=== PATIENT | male | born 1975 | race African-American/Black ===

== ENCOUNTER 2024-09-08 01:28 | Day surgery (SDC) | payer OTHER, SELFPAY ==
[2024-08-28 14:31] VITALS: BMI 52.1
--- OUTSIDE RECORDS SUMMARY | 2024-09-08 01:32 | XMS_ITS | Referral Summary ---
Author Organization [address] Address [address] [place] [phone] Care Team Providers Care Sales Trainee Name Role Phone Sylvia Valentin MD Unavailable [phone] Snehal Patricia MD Primary Care Provider [phone] Allergies Active Allergy Reactions Criticality Noted Date Comments Penicillins Unknown Medications albuterol HFA (PROVENTIL HFA,VENTOLIN HFA,PROAIR HFA) 90 mcg/actuation inhaler Inhale 2 puffs every 6 (six) hours as needed 01/04/2023 Active apixaban (ELIQUIS ORAL) Take by mouth Active amiodarone (PACERONE) 400 mg tablet Take 1 tablet (400 mg total) by mouth 2 (two) times a day for 12 doses 12 tablet 03/19/2023 Active magnesium oxide (MAG-OX) 400 mg (241.3 mg elemental magnesium) tabletIndicatio ns:hypomagnesem ia Take 2 tablets (800 mg total) by mouth 2 (two) times a day for 728 doses 120 tablet 11 03/19/2023 Active Active Problems Problem Noted Date Diagnosed Date Encounter for screening colonoscopy 05/12/2024 V tach 02/12/2023 Acute bilateral low back pain 03/26/2017 Assessment & Plan (03/26/2017 2:15 PM PRENATAL TEACHER): Acute on Chronic Back Pain (back Injury in 2010) BMI 45.0-49.9, adult 03/26/2017 Obesity, morbid, BMI 40.0-49.9 03/26/2017 Assessment & Plan (03/26/2017 2:17 PM PRENATAL TEACHER): Diet= low-carb Limit white bread, rice, pasta, potatoes, juice, energy drinks, coffee creamers with sugar, sugar sodas, candy, cake, cookies, ice cream. Be more careful with starchy vegetables like corn, carrots, and fruits. Stay away from processed foods, fast foods, fried foods. The cornerstone of this diet is lean grilled meats, green salads or cooked greens, fat-free milk, cottage cheese, nuts like jizbbij-fzcikao-khgcmlf, protein bars with 10-15 g of protein and 20-30 g of carbohydrate. Choose whole grain breads and pastas, brown rice, sweet potatoes, read onions--these whole grains absorb more slowly thus blood sugar does not surge so high so quickly. Avoid drinking juice, eat a piece of fruit instead. Social History Tobacco Use Types Packs/Day Years Used Date Smoking Tobacco: Never Passive Smoke Exposure: Past Smokeless Tobacco: Never Tobacco Cessation:Counseling Given: Not Answered Alcohol Use Standard Drinks/Week Comments No 0 (1 standard drink = 0.6 oz pur e alcohol) AUDIT-C Answer Date Recorded Q1: How often do you have a drink containing alcohol? Never 03/18/2023 Q2: How many drinks containi ng alcohol do you have on a typical day when you are drinking? Patient does not drink Q3: How often do you have si x or more drinks on one occasion? Never 03/18/2023 Personal Safety Answer Date Recorded Have you ever been in or are you currently in a harmful physical or emotional relationship or is someone making you feel afraid or unsafe? Denies 03/18/2023 Sex and Gender Information Value Date Recorded Sex Assigned at Not on file Legal Sex Male 6:14 PM PRENATAL TEACHER Gender Identity Not on file Sexual Orientation Not on file Last Filed Vital Signs Vital Sign Reading Time Taken Comments Blood Pressure 135/84 03/19/2023 8:20 AM PRENATAL TEACHER Pulse 75 03/19/2023 9:00 AM PRENATAL TEACHER Temperature 36.4 C (97.6 F) 03/19/2023 8:20 AM PRENATAL TEACHER Respiratory Rate 18 03/19/2023 8:20 AM PRENATAL TEACHER Oxygen Saturation 100% 03/19/2023 8:20 AM PRENATAL TEACHER Inhaled Oxygen Concentration - - Weight 153.3 kg (338 lb) 03/18/2023 7:01 AM PRENATAL TEACHER Height 175.3 cm (5' 9) 03/18/2023 7:01 AM PRENATAL TEACHER Body Mass Index 49.91 03/18/2023 7:01 AM PRENATAL TEACHER Plan of Treatment Upcoming Encounters Date Type Department Care Team (Late st Contact Info) Description 12/14/2024 9:30 AM CDT Hospital Encounter [address] [address] Ian Recinos, DO [address] [facility] [address] [place] [address] 12/14/2024 9:30 AM CDT - 12/14/2024 10:00 AM CDT Surgery [address] [address] Ian Recinos, DO [address] [facility] [place] [address] COLONOSCOPY Scheduled Procedures Name Priority Associated Diagnoses Date/Ti me COLONOSCOPY Encounter for screening colonoscopy 12/14/2024 9:30 AM CDT Insurance [facility] CHOICE PLUS [facility] HMO/PPO Address: [facility] [address] [place] [address] [facility] CHOICE PLUS [facility] HMO/PPO Address: [address] [address] [place] [id number] [facility] CHOICE PLUS [facility] HMO/PPO Address: [address] [address] [place] [address] Care Teams Sales Trainee Relationship Specialty Start Date End Date Snehal Patricia MD [facility] [address] PCP - General Internal Medicine 03/19/23 Sylvia Valentin MD [address] [place] [address] Consulting Physician Cardiology 03/19/23
--- OUTSIDE RECORDS SUMMARY | 2024-09-08 01:32 | XMS_ITS | Clinical Summary ---
Author Organization [address] Address [address] [place] [id number] Care Team Providers Care Systems Administrator Name Role Phone Sylvia Valentin MD Unavailable [phone] Snehal Patricia MD Primary Care Provider [phone] Allergies Active Allergy Reactions Criticality Noted Date [...] 03/26/2017 Assessment & Plan (03/26/2017 2:15 PM MACHINE OPERATOR HOP PICKER): Acute on Chronic Back Pain (back Injury in 2010) BMI 45.0-49.9, adult 03/26/2017 Obesity, morbid, BMI 40.0-49.9 03/26/2017 Assessment & Plan (03/26/2017 2:17 PM MACHINE OPERATOR HOP PICKER): Diet= low-carb Limit white bread, rice, pasta, potatoes, juice, energy drinks, coffee creamers with sugar, sugar sodas, candy, cake, cookies, ice cream. Be more careful with starchy vegetables like corn, carrots, and fruits. Stay away from processed foods, fast foods, fried foods. The cornerstone of this diet is lean grilled meats, green salads or cooked greens, fat-free milk, cottage cheese, nuts like pmeeold-ysbvdip-zywzlqi, protein bars with 10-15 g of protein and 20-30 g of carbohydrate. Choose whole grain breads and pastas, brown rice, sweet potatoes, read onions--these whole grains absorb more slowly thus blood sugar does not surge so high so quickly. Avoid drinking juice, eat a piece of fruit instead. Surgical History Surgery Date Site/Laterality Comments HERNIA REPAIR Medical History Medical History Date Comments Back injury 2010 V tach (HCC) Sleep apnea Atrial fibrillation (HCC) Asthma Family History Medical History Relation Name Comments Diabetes Mother Diabetes Mother's Brother Relation Name Status Comments Mother Mother's Brother Social History Tobacco Use Types Packs/Day Years [...] on file Legal Sex Male 6:14 PM MACHINE OPERATOR HOP PICKER Gender Identity Not on file Sexual Orientation Not on file Obstetrics History Last Filed Vital Signs Vital Sign Reading Time Taken Comments Blood Pressure 135/84 03/19/2023 8:20 AM MACHINE OPERATOR HOP PICKER Pulse 75 03/19/2023 9:00 AM MACHINE OPERATOR HOP PICKER Temperature 36.4 C (97.6 F) 03/19/2023 8:20 AM MACHINE OPERATOR HOP PICKER Respiratory Rate 18 03/19/2023 8:20 AM MACHINE OPERATOR HOP PICKER Oxygen Saturation 100% 03/19/2023 8:20 AM MACHINE OPERATOR HOP PICKER Inhaled Oxygen Concentration - - Weight 153.3 kg (338 lb) 03/18/2023 7:01 AM MACHINE OPERATOR HOP PICKER Height 175.3 cm (5' 9) 03/18/2023 7:01 AM MACHINE OPERATOR HOP PICKER Body Mass Index 49.91 03/18/2023 7:01 AM MACHINE OPERATOR HOP PICKER Plan of Treatment Upcoming Encounters Date Type Department Care Team (Late st Contact Info) Description 12/14/2024 9:30 AM CDT Hospital Encounter [address] [address] Ian Recinos DO [address] [facility] [place] [address] 12/14/2024 9:30 AM CDT - 12/14/2024 10:00 AM CDT Surgery [address] [address] Ian Recinos DO [address] [facility] [address] [place] [address] COLONOSCOPY Scheduled Procedures Name Priority Associated Diagnoses Date/Ti me COLONOSCOPY Encounter for screening colonoscopy 12/14/2024 9:30 AM CDT Health Maintenance Due Date Last Done Comments Colon Cancer Screening-Colonoscopy 1974 Depression Screening 1974 Hepatitis C Screening 1974 Prostate Cancer Screening-PSA 1974 DTaP/Tdap/Td Vaccine (1 - Tdap) 1985 Hepatitis B Screening 1992 Regular Well Visit/Exam 18-64 1992 Pneumococcal vaccine <65 (1 of 2 - PCV) 1993 Zoster Vaccine (1 of 2) 2024 Influenza Vaccine (Season Ended) 2024 Insurance [facility] CHO[facility] PLUS [facility] H[facility]/PPO Address: [address] [place] [address] [facility] CHOICE PLUS [facility] HMO/PPO Address: [address] [place] [address] [facility] CHOICE PLUS [facility] HMO/PPO Address: [address] [place] [address] Care Teams Systems Administrator Relationship Specialty Start Date End Date Snehal Patricia MD [address] [address] PCP - General Internal Medicine 03/19/23 Sylvia Valentin MD [address] [place] [address] Consulting Physician Cardiology 03/19/23
--- OUTSIDE RECORDS SUMMARY | 2024-09-08 01:32 | XMS_ITS | Clinical Summary ---
Author Organization [facility] [facility] Address [address] [place] [address] Care Team Providers Care Environmental Field Technician Name Role Phone Unavailable Primary Care Provider Unavailabl e Source Comments [facility],non-owned Affiliates and Associated Physician Practices is amultiple site organization consisting of ambulatory clinics and hospital sitesin [place], [place], [place] and [place]. This disclosure is being madepursuant to the Care Everywhere program and may not contain all information available regarding this patient. Last updated 17.[facility] Allergies Active Allergy Reactions Criticality Noted Date Comments Penicillins Other 07/21/2024 Childhood, unsure of RXN Medications * Be aware that medications may not be up to date on this document. Alwaysverify current medications with the patient. albuterol HFA (Proventil; Ventolin; Proair) 108 (90 Base) MCG/ACT inhaler Inhale 2 (two) puffs by mouth as needed Active acetaminophen (Tylenol) 500 MG capsule Take 1 (one) capsule by mouth every 4 hours as needed for Fever or Pain 30 capsule 5 Active Additional Information Patient not taking.Reported on 08/25/2024 ibuprofen (Motrin) 400 MG tablet Take 1 (one) tablet by mouth every 6 hours as needed for Pain 30 tablet 5 Active Additional Information Patient not taking.Reported on 08/25/2024 oxyCODONE, immediate release, (Roxicodone) 5 MG tabletIndicati ons:Scrotal mass Take 1 (one) tablet by mouth every 6 hours as needed for Pain 5 tablet 5 08/26/19 25 Discontin ued(Tx Complete) Encounters Date Type Department Care Team Description 08/25/2024 10:00 AM CDT Office Visit [facility] - Urology [address] [place] [address] Paty Manzanares, TRAFFIC RATE ANALYST-HYPERION ESSBASE DEVELOPER Postop check (Primary Dx) 08/25/2024 Travel 08/02/2024 1:31 PM CDT Anesthesia Event [facility] [address] [place] [address] Zafar Olson DO Singh, Jaganjot, DO 08/02/2024 12:05 PM CDT - 08/02/2024 2:12 PM CDT Surgery [facility] [address] [place] [address] Liberty Arredondo DO Right hydrocelectomy 08/02/2024 8:57 AM CDT - 08/02/2024 4:08 PM CDT Hospital Encounter [facility] [address] [place] [address] Liberty Arredondo DO Surgery General Discharge Disposition: Home or Self Care 08/02/2024 Travel 08/01/2024 Telephone [facility] - Urology [address] [facility], [place] [address] Liberty Arredondo DO Surgery Scheduling (Pt returned call confirmed 1030AM arrival for 1230PM procedure time on 08/02. Kamilah Ren 08/01/2024 10:35 AM ) 07/21/2024 3:12 PM CDT - 07/21/2024 11:59 PM CDT Hospital Encounter [facility] [address] [place] [address] Discharge Disposition: Home or Self Care 07/21/2024 1:30 PM CDT - 07/21/2024 3:11 PM CDT Hospital Encounter [facility] [address] [place] [address] Liberty Arredondo DO Discharge Disposition: Home or Self Care 07/21/2024 Travel 06/09/2024 9:30 AM BARGE MASTER Office Visit [facility] - Urology [address] [place] [address] Liberty Arredondo DO Other hydrocele (Primary Dx); Scrotal mass; Nocturia 06/09/2024 Travel from Last 3 Months Social History Tobacco Use Types Packs/Day Years Used Date Smoking Tobacco: Never Passive Smoke Exposure: Never Smokeless Tobacco: Never Tobacco Cessation:Counseling Given: No Alcohol Use Standard Drinks/Week Comments Never 0 (1 standard drink = 0.6 oz pur e alcohol) AUDIT-C Answer Date Recorded Q1: How often do you have a drink containing alcohol? Never 08/02/2024 Q2: How many drinks containi ng alcohol do you have on a typical day when you are drinking? Patient does not drink Q3: How often do you have si x or more drinks on one occasion? Never 08/02/2024 Sex and Gender Information Value Date Recorded Sex Assigned at Not on file Legal Sex Male 1:44 PM CDT Gender Identity Not on file Sexual Orientation Not on file Last Filed Vital Signs Vital Sign Reading Time Taken Comments Blood Pressure 128/79 08/25/2024 10:39 AM CDT Pulse 75 08/25/2024 10:39 AM CDT Temperature 36.8 C (98.2 F) 08/25/2024 10:39 AM CDT Respiratory Rate 18 08/25/2024 10:39 AM CDT Oxygen Saturation 95% 08/25/2024 10:39 AM CDT Inhaled Oxygen Concentration - - Weight 160.1 kg (353 lb) 08/25/2024 10:39 AM CDT Height 175.3 cm (5' 9) 08/25/2024 10:39 AM CDT Body Mass Index 52.13 08/25/2024 10:39 AM CDT Plan of Treatment Health Maintenance Due Date Last Done Comments COLOGUARD (AGES 45-75) - COL ON CA SCREENING 1974 COLON MONITORING 1974 COLONOSCOPY - COLON CA SCREENING 1974 CT COLONOGRAPHY - COLON CA SCREENING 1974 Colorectal Cancer Screening 1974 FIT - COLON CA SCREENING 1974 FLEX SIG - COLON CA SCREENING 1974 LIPID TESTING 1974 HIV SCREENING 1989 HEPATITIS C SCREENING 08/03/1992 DTAP/TDAP/TD VACCINES (1 - Tdap) 1993 HEPATITIS B VACCINE (1 of 3 - 19+ 3-dose series) 1993 COVID-19 VACCINE (1 - 2023-2 5 season) 2023 DEPRESSION SCREENING 04/12/2024 MEDICARE AWV CALENDAR YEAR 2024 PNEUMOCOCCAL VACCINE 50+ (1 of 1 - PCV) 2024 ZOSTER VACCINE (1 of 2) 2024 INFLUENZA VACCINE (Season Ended) 2024 01/05/20 SCREENING FOR DIABETES 07/22/2027 07/21/2024 HIB VACCINE Aged Out No longer eligi ble based on patient's age to complete this topic HPV VACCINE Aged Out No longer eligi ble based on patient's age to complete this topic MENINGOCOCCAL (Group B) VACC INE SHARED DECISION-MAKING Aged Out No longer eligibl e based on patient's age to complete this topic MENINGOCOCCAL GROUPS A/C/Y/W VACCINE Aged Out No longer eligible b ased on patient's age to complete this topic Procedures Procedure Name Priority Date/Time Associated Diagnosis Comments ENDOTRACHEAL TUBE NOTE Routine 08/02/2024 1:53 PM CDT OK REMOVAL OF SCROTAL FOR.BODY 08/02/2024 12:56 PM CDT Other hydrocele Scrotal mass Case Notes Reviewed 08/01 OK REMOVAL OF HYDROCELE,TUNICA,UNI LAT 08/02/2024 12:56 PM CDT Other hydrocele Scrotal mass Case Notes Reviewed 08/01 TYPE + SCREEN PANEL STAT 08/02/2024 1 0:44 AM CDT Scrotal mass EKG 12-LEAD STAT 08/02/2024 10:29 AM CDT Scrotal mass TYPE + SCREEN PANEL Routine 07/21/2024 3 :21 PM CDT Scrotal mass BASIC METABOLIC PANEL (CALCIUM TOTAL) Routine 07/21/2024 3:21 PM CDT Scrotal mass CBC W/O DIFFERENTIAL Routine 07/21/2024 3:21 PM CDT Scrotal mass from Last 3 Months Results * ETT LINE PERFORMABLE (08/02/2024 1:53 PM CDT) Narrative Melvina Carlos APRN-CRNA - 08/02/2024 1:53 PM CDT Melvina Carlos APRN-CRNA 08/02/2024 1:55 PM Endotracheal Tube Placement: Patient Location: OR. Intubation Event Date/Time: 08/02/2024 1:43 PM Procedure: intubation ([id number]) Procedure Section: Sedation: under general anesthesia. Indications for Airway Management: anesthesia Procedure pretreatments used? No Induction: standard IV Patient Position: sniffing Mask Ventilation: difficult and required 2 people (2 handed). Blade Type: Levi Blade Size: 4 Intubation Adjuncts: stylet Tube: endotracheal tube Placement: oral Tube type: cuff - inflated Tube Size (MM): 8 Depth of Insertion (CM): 22 Measured From: gums Cuff volume (mL): 8 Cuff Inflated With: air Number of Attempts: 2. Ventilation between attempts: Yes. Placement Verified By: bilateral breath sounds, direct visualization, chest auscultation and CO2 monitor CXR Findings: ETT in proper place. Tube secured with: adhesive tape. Dentition unchanged? Yes Difficult Airway? No. Procedure Start Time: 08/02/2024 1:43 PM. Staff Section Anesthesia Provider: Melvina Carlos APRN-CRNA, Performed the procedure Provider #1: Zafar Olson DO. Additional Comments: Pt has good mouth opening and thyromental distance >3 FB. Difficult mask ventilation requiring 2 providers and red OPA. Grade 2b view using cricoid pressure and only base of arytenoids visible with mac 4 blade. . Zafar Olson DO GENERAL ANESTHESIA ORDERABLES F inal Result * TYPE + SCREEN PANEL (08/02/2024 10:44 AM CDT) Only the most recent of2 resultswithin the time period is included. Antibody Screen NEG 12:13 PM CDT [facility] ABO Rh O POS 08/02/2024 12:13 PM CDT [facility] Blood Bank BLOOD SPECIMEN / Unknown Venipuncture / Unknown 08/02/2024 10:44 AM CDT 08/02/2024 11:13 AM CDT Tra Fried MD LAB - BLOOD BANK ORDERABLES Fin al Result Performing Organization Address City/[facility]/ZIP Co de Phone Number [facility] [address] [place] [address], [facility] [phone] * EKG 12-LEAD (08/02/2024 10:29 AM CDT) Ventricular Rate 64 BPM [facility] Atrial Rate 64 BPM [facility] P-R Interval 142 ms [facility] QRS Duration ms 86 ms [facility] Q-T Interval ms 390 ms [facility] QTC Calculation (Bezet) 402 ms [facility] Calculated P [place] 24 degrees [facility] Calculated R [place] 25 degrees [facility] Calculated T [place] 72 degrees [facility] Interpretation EKG NORMAL SINUS RHYTHM NORMAL ECG NO PREVIOUS ECGS AVAILABLE Confirmed by YOUSIF VALDEZ, YUSEF ([id number]) on 08/04/2024 4:23:55 PM [facility] 08/02/2024 10:2 9 AM CDT 08/04/2024 4:23 PM CDT Tra Fried MD ECG ORDERABLES Edited Result - Final Performing Organization Address [facility] Co de Phone Number [facility] * CBC W/O DIFFERENTIAL (07/21/2024 3:21 PM CDT) Pathologist [facility] WBC 6.7 4.0 - 10.7 x10E9/L 07/21/2024 4:02 PM CDT [facility] RBC Count 4.76 4.30 - 5.80 x10E12/L 07/21/2024 4:02 PM CDT [facility] Hemoglobin 13.6 13.3 - 17.5 g/dL 07/21/2024 4:02 PM CDT [facility] Hematocrit 42.9 38.7 - 51.1 % 07/21/2024 4:02 PM [facility] MCV 90.1 80.0 - 98.0 fL 07/21/2024 4:02 PM [facility] MCH 28.6 26.7 - 33.6 pg 07/21/2024 4:02 PM [facility] MCHC 31.7 31.7 - 36.3 g/dL 07/21/2024 4:02 PM [facility] RDW-CV 12.2 11.3 - 14.8 % 07/21/2024 4:02 PM [facility] Platelet Count 295 150 - 420 x10E9/L 07/21/2024 4:02 PM [facility] MPV 9.5 7.8 - 11.4 fL 07/21/2024 4:02 PM [facility] Blood BLOOD SPECIMEN / Unknown Lab Venipuncture / Unknown 07/21/2024 3:21 PM CDT 07/21/2024 3:56 PM CDT us Tra Fried MD LAB - HEMATOLOGY ORDERABLES Fin al Result [facility] [address] [place] [address], [facility] [phone] * BASIC METABOLIC PANEL (CALCIUM TOTAL) (07/21/2024 3:21 PM CDT) BUN 16 7 - 26 mg/dL 07/21/2024 4:21 PM [facility] Creatinine 1.00 0.71 - 1.16 mg/dL 07/21/2024 4:21 PM [facility] Sodium 141 136 - 145 mmol/L 07/21/2024 4:21 PM [facility] Potassium 4.4 3.5 - 4.5 mmol/L 07/21/2024 4:21 PM [facility] Chloride 107 98 - 107 mmol/L 07/21/2024 4:21 PM [facility] CO2 28 22 - 29 mmol/L 07/21/2024 4:21 PM [facility] Glucose 96 70 - 99 mg/dL 07/21/2024 4:21 PM [facility] Calcium 8.8 8.4 - 10.2 mg/dL 07/21/2024 4:21 PM [facility] Anion Gap 6 6 - 16 07/21/2024 4:21 PM [facility] BUN/Creatinine Ratio 16 7 - 23 07/21/2024 4:21 PM [facility] Osmolality Calculated 293 275 - 295 mOsm/kg 07/21/2024 4:21 PM [facility] eGFR by CKD-EPI >90 >=90 mL/min/1.7 3 m2 07/21/2024 4:21 PM [facility] Blood BLOOD SPECIMEN / Unknown Lab Venipuncture / Unknown 07/21/2024 3:21 PM CDT 07/21/2024 3:56 PM T us Tra Fried MD LAB - CHEMISTRY ORDERABLES Sherin garcia Result [facility] [address] [place] [address], [facility] [phone] from Last 3 Months Insurance [employer] MANAGED MEDICARE ADV [facility] MANAGED MEDICARE ADV
--- OUTSIDE RECORDS SUMMARY | 2024-09-08 01:32 | XMS_ITS | Clinical Summary ---
Author Organization [facility] Address [address] [place] [address] Phone Care Team Providers Care Washtub Worker Helper Name Role Phone Unavailable Primary Care Provider Unavailabl e Allergies Active Allergy Reactions Criticality Noted Date Comments Penicillins Other (see Comments) 11/08/2018 Medications fluticasone-vilan terol (BREO ELLIPTA) 200-25 MCG/INH AEROSOL POWDER, BREATH ACTIVATEDIndicati ons:Mild intermittent asthma, unspecified whether complicated take 1 Puff by inhalation daily. 1 Each 2 9 Active albuterol 108 (90 Base) MCG/ACT Aerosol SolutionIndicatio ns:Mild intermittent asthma, unspecified whether complicated take 2 Puffs by inhalation every 6 hours as needed for Wheezing or Cough. 8.5 g 9 Active Active Problems Problem Noted Date Diagnosed Date Vitamin D deficiency 11/09/2018 Mild intermittent asthma 11/08/2018 Family History Medical History Relation Name Comments Diabetes Brother 1 Hypertension Brother 1 No Known Problems Brother 2 No Known Problems Brother 3 Migraines Brother 4 Migraines Father Stroke Father Diabetes Mother Migraines Sister Relation Name Status Comments Brother 1 Alive Brother 2 Alive Brother 3 Alive Brother 4 Alive Father Mother Alive Sister Alive Social History Tobacco Use Types Packs/Day Years Used Date Smoking Tobacco: Never Smokeless Tobacco: Never Alcohol Use Standard Drinks/Week Comments Not Currently 0 (1 standard drink = 0.6 oz pur e alcohol) PHQ-2 Answer Date Recorded PHQ-2 Score 0 12/13/2018 Sexually Active Control Partners Comments Yes Condom Female Sex and Gender Information Value Date Recorded Sex Assigned at Not on file Legal Sex Male 12:30 AM CDT Gender Identity Not on file Sexual Orientation Not on file 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 Not on file Not on file Last Filed Vital Signs Vital Sign Reading Time Taken Comments Blood Pressure 122/70 11/28/2018 2:12 PM CDT Pulse 77 11/28/2018 2:12 PM CDT Temperature 37.2 C (98.9 F) 11/28/2018 2:12 PM CDT Respiratory Rate 20 11/28/2018 2:12 PM CDT Oxygen Saturation 96% 11/28/2018 2:12 PM CDT Inhaled Oxygen Concentration - - Weight 155 kg (341 lb 12.8 oz) 11/28/2018 2:12 P M CDT Height 175.3 cm (5' 9) 11/28/2018 2:12 PM CDT Body Mass Index 50.48 11/28/2018 2:12 PM CDT Plan of Treatment Health Maintenance Due Date Last Done Comments Hepatitis C Virus (HCV) Screening 1974 TdaP Immunization 1974 Hepatitis B Immunization (1 of 3 - 19+ 3-dose series) 1993 Pneumococcal Immunization Co mbined (1 of 2 - PCV) 1993 Colonoscopy 08/09/2019 Colorectal Cancer Screening 08/09/2019 Influenza Immunization (#1) 2023 SARS-COV-2 Immunization ( - 2023- season) 2023 Cologuard 2024 Immunochemical Fecal Occult Blood 2024 Respiratory Syncytial Virus (RSV) Immunization (Adult) (1 - 1-dose 75+ series) 2049 Meningococcal Immunization (ACWY) Aged Out No longer eligible based on patient's age to complete this topic Rotavirus Immunization Aged Out No lo nger eligible based on patient's age to complete this topic
--- OUTSIDE RECORDS SUMMARY | 2024-09-08 01:32 | XMS_ITS | Continuity of Care Document ---
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 Name Role Phone Unavailable Unavailable Unavailable Procedures Procedure Date OFFICE OUTPT NEW 20 MINUTES Advance Directives Directive Yes / No Effective Date File Name No Information Encounters Encounter Description Practice Location Reason(s) For Visit Diagnoses Date Provider Providers Copied on Encounter OFFICE OUTPT NEW 20 MINUTES [facility] , [address], [place], [place], [id number], tel:[phone] [id number] [facility] No Information Family History Family Member Type Diagnosis Age At Onset No Information Payers Payer name Insurance type Covered alliance party ID Authoriza tion(s) No Information Social History Type Description Quantity Date Captured Comments Sex Male Smoking Status No Information Vital Signs Date / Time: Height Weight BMI Pulse Rate Blood Pressure Temperature Respiratory Rate Body Surface Area Head Circumference Head Circ. Percentile Wt./Ruperto. Percentile BMI percentile Pulse Ox Inhaled Ox 9:38 AM 69.00 in 290.00 lbs 0.00 kg/m eter (2) 0 /min 110/80 mm[Hg] 98.50 F 0 /min 0.00 cm 0 % Chief Complaint And Reason For Visit No Information Reason For Referral Reason For Referral No Information History Of Present Illness Encounter Date Complaint History Of Prese nt Illness No Information Functional Status Date Functional Assessmen t No Information Instructions Date Instruction Additional Infor mation No Information Assessments Type Assessment Date No Information Patient Care Teams Name Effective Dates (start - stop) Status Members No Information
--- OUTSIDE RECORDS SUMMARY | 2024-09-08 01:32 | XMS_ITS | Data Portability ---
Author Organization [place] [facility], Main Office Address [address] [place] [address] Care Team Providers Care Lead Ramp Agent Name Role Phone GRIS LONDON Primary Care Provider GRIS LONDON Referring Provider [phone] Assessment Encounter Date Assessment Date Assessment LastModified by Organization Details LastModified Time 12/02/2022 12/02/2022 Assessment: FLORENCE PLMD Hypoventilation Plan: The following were reviewed and explained to the patient: primary care/referral note General information on sleep disordered breathing, evaluation of sleep disordered breathing, treatment with PAP therapy, and living with PAP therapy were covered. Chapter 1 of educational DVD was shown. PSG is medically necessary to determine the degree of and management of sleep apnea. We discussed with the patient the impact of weight on: Sleep disordered breathing Hypertension We discussed with the patient the benefit of PAP therapy on: Sleep disordered breathing Hypertension Educated the patient on sleep hygiene measures. Relaxing rituals to rest easy, understanding foods with positive and negative impact on sleep, creating a peaceful sleep environment, timing of exercise, using herbal sleep aids, and practicing sleep-friendly meditation were covered. To determine how much sleep is needed, the patient will assess where he falls on the spectrum, examine what lifestyle factors such as work schedules and stress are affecting the quality and quantity of sleep. In general, adults need 7-9 hours of sleep. Educated the patient regarding foods that promote sleep. These include but are not limited to cherries, bananas, toast, oatmeal, and warm milk. Educated the patient regarding foods and drinks to avoid before bedtime. These include but are not limited to aged cheese, chocolate, spicy foods, tomato-based sauces, soy, ginseng tea and processed meat. Advocated influenza vaccination annually and pneumonia vaccination in 2039. Advocated weight loss through diet and exercise. Patient's ideal body weight according to height and gender is up to 175 lbs. Encouraged patient to adjust caloric intake to maintain/achieve ideal body weight, emphasizing on fruits, vegetables, whole grains, and fat-free or low-fat products. These include lean meats, poultry, fish, beans, eggs, and nuts and foods that are low in saturated fats, trans-fats, cholesterol, salt (sodium), and glycemic index. Stressed the importance of regular exercise up to the patient's capacity limits. In this case, we recommend 20 min daily walking, 2 days a week of resistance training. Patient to monitor BP daily and bring records to PCP for further management. 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 PSG is medically necessary to determine the management of sleep apnea. We discussed with the patient the impact of weight on: Sleep disordered breathing Hypertension We discussed with the patient the benefit of PAP therapy on: Sleep disordered breathing Hypertension Educated the patient on sleep hygiene measures. Relaxing rituals to rest easy, understanding foods with positive and negative impact on sleep, creating a peaceful sleep environment, timing of exercise, using herbal sleep aids, and practicing sleep-friendly meditation were covered. To determine how much sleep is needed, the patient will assess where he falls on the spectrum, examine what lifestyle factors such as work schedules and stress are affecting the quality and quantity of sleep. In general, adults need 7-9 hours of sleep. Educated the patient regarding foods that promote sleep. These include but are not limited to cherries, bananas, toast, oatmeal, and warm milk. Educated the patient regarding foods and drinks to avoid before bedtime. These include but are not limited to aged cheese, chocolate, spicy foods, tomato-based sauces, soy, ginseng tea and processed meat. Advocated influenza vaccination annually and pneumonia vaccination in 2039. Advocated weight loss through diet and exercise. Patient's ideal body weight according to height and gender is up to 175 lbs. Encouraged patient to adjust caloric intake to maintain/achieve ideal body weight, emphasizing on fruits, vegetables, whole grains, and fat-free or low-fat products. These include lean meats, poultry, fish, beans, eggs, and nuts and foods that are low in saturated fats, trans-fats, cholesterol, salt (sodium), and glycemic index. Stressed the importance of regular exercise up to the patient's capacity limits. In this case, we recommend 20 min daily walking, 2 days a week of resistance training. Patient to monitor BP daily and bring records to PCP for further management. Follow-up: 1 week after titration sleep study Not available 01/11/2023 10:18:28 Plan of Treatment Reminders Order Date Submit Date Provider Last Modified By Organization Details Last Modified Time Details Appointments None recorded. Lab None recorded. Referral None recorded. Procedures None recorded. Surgeries None recorded. Imaging polysomnog orquidea, titration study - approved [id number] 04/19/2023 07/19/20232022 023 [email or web address] [facility] [place], [address] [place], [address], 4 11:38:37 polysomnog orquidea, diagnostic , 6 yrs or older [email or web address], [address] [place], [address], 13:37:17 Medication Orders None recorded. Patient TargetsNo targets recorded. Patient InstructionsNo instructions recorded. Reason for Referral None Reported. Results Created Date Observation Date Name Description Value Unit Range Abnormal Flag Note LastModifiedBy Organization Detail LastModifiedTime 01/08/2001/04/2023 home sleep study No observ ation record ed. BARCODE Not Available 2022 14:06:29 05/04/1903/29/2024 XR, elbow No observ ation record ed. [email or web address] Not Available 04/13 14:36:35 05/04/1903/29/2024 XR, shoul eduardo No observ ation record ed. [email or web address] Not Available 04/13 14:36:35 Result Notes None recorded. 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 Procedures Surgical History Date Name Laterality Status Provider Name and Address Organization Details Recorded Time inguinal herniorrhaphy completed Bambi Das MA [employer] [facility] [employer] 12/02/2022 16:19:33 inguinal herniorrhaphy completed Bambi Das MA [facility] [employer] [facility] 12/02/2022 16:20:12 Imaging Results None recorded. Procedure Notes None recorded. Medical Equipment None Reported. Allergies Allergen ID Allergen Name Allergen Category Reaction Reaction Severity Criticality Documentation Date Start Date Code Code System Note Provider Name and Address Organization Details Recorded Time 83489 Product containin g penicilli n (product) medicatio n Not available Not available Not available 06/10/2022 73961 8001 SNOMED Not Available [facility] 17:31:13 Medications Name Sig Start Date Stop Date Status Note LastModified by Organization Details LastModified Time ibuprofen 800 mg tablet TAKE 1 TABLET BY MOUTH THREE TIMES DAILY WITH MEALS FOR 14 DAYS FOR PAIN active Not Available Not Available No t Available hydrocodone 5 mg-acetamin ophen 325 mg tablet 12/02 completed Not Available Not Available Not Available clindamycin HCl 150 mg capsule TAKE 1 CAPSULE BY MOUTH EVERY 6 HOURS UNTIL ALL TAKEN 12/02 completed Not Available Not Available Not Available metronidazo le 500 mg tablet 12/02 completed Not Available Not Available Not Available acetaminoph en 300 mg-codeine 30 mg tablet TAKE 1 TABLET BY MOUTH EVERY 6 HOURS NEEDED FOR PAIN 12/02 completed Not Available Not Available Not Available ciprofloxac in 500 mg tablet active Not Available Not Available Not Available hydrocodone 10 mg-acetamin ophen 325 mg tablet 12/02 completed Not Available Not Available Not Available oxycodone-a cetaminophe n 5 mg-325 mg tablet 12/02 completed Not Available Not Available Not Available promethazin e 25 mg tablet 12/02 completed Not Available Not Available Not Available albuterol sulfate HFA 90 mcg/actuati on aerosol inhaler active Not Available Not Available Not Available cyclobenzap rine 5 mg tablet TAKE 1 TABLET BY MOUTH THREE TIMES DAILY FOR 14 DAYS DIRECTED FOR MUSCLE STRAIN active Not Available Not Available No t Available DILT-XR 180 mg capsule, extended release active Not Available Not Available Not Available Vitals Date Recorded Heart rate Respiratory rate Provider Krissy jacskon and Address Organization Details Last Updated DateTime 12/02/2022 69 /min 15 /min Nishant Gardner MD [address], [employer], [place], [address], [facility] [employer] [facility] 12/02/2022 16:35:19 Date Recorded Body weight Body mass index (BMI) Body height Body temperature Heart rate Oxygen saturation Oxygen saturation in Arterial blood by Pulse oximetry Systolic blood pressure Diastolic blood pressure Provider Name and Address Organization Details Last Updated DateTime 3 576788. 34 g 47.7 kg/m2 175.26 cm 98.2 [degF] 69 /min 96 % 96 % 122 mm[Hg] 84 mm[Hg] Bambi Das MA [facility] [employer] 16:24:22 Date Recorded Heart rate Respiratory rate Provider Krissy jackson and Address Organization Details Last Updated DateTime 01/11/2023 73 /min 15 /min Nishant Gardner MD [address], [place], [address], [facility] [employer] [facility] 01/11/2023 10:29:51 Date Recorded Body height Body mass index (BMI) Body weight Body temperature Heart rate Oxygen saturation Oxygen saturation in Arterial blood by Pulse oximetry Systolic blood pressure Diastolic blood pressure Provider Name and Address Organization Details Last Updated DateTime 3 175.26 cm 49.3 kg/m2 405550. 85 g 97.6 [degF] 73 /min 97 % 97 % 122 mm[Hg] 76 mm[Hg] Bambi Das MA Lorena [facility]axiola 10:06:04 Social History Question Answer Notes LastModified by Organizat ion Details LastModified Time Tobacco Smoking Status Never Smoker Bambi Das MA null, [facility] 12/02/2022 16:17:31 What Is Your Level Of Caffeine Consumption? Occasional Information not available 12/02/2022 In The 14 Days Before Symptom Onset, Have You Had Close Contact With A Laboratory-confirm ed COVID-19 While That Case Was Ill? No Information n ot available 12/02/2022 In The 14 Days Before Symptom Onset, Have You Had Close Contact With A Person Who Is Under Investigation For COVID-19 While That Person Was Ill? No Information not available 12/02/2022 What Type Of Diet Are You Following? REGULAR Information n ot available 12/02/2022 Do You Have An Electrostatic Air Filter? No Information not available 12/02/2022 Do You Have A Humidifier? No Information not available 12/02/2022 Do You Have Moisture Problems In Your Home? No Information not available 12/02/2022 What Was The Date Of Your Most Recent Tobacco Screening? 01/11/2023 Information not available 01/11/2023 Do You Have Any Pets? No Information not available 12/02/2022 Do You Use Your Seat Belt Or Car Seat Routinely? Yes Information not available 12/02/2022 Do You Have Smoke And Carbon Monoxide Detectors In Your Home? Yes Information not available 12/02/2022 Are You Passively Exposed To Smoke? No Information no t available 12/02/2022 Do You Use Sunscreen Routinely? No Information not available 12/02/2022 Have You Recently Traveled Abroad? No Information not available 12/02/2022 Do You Have Any Dietary Restrictions? No Information not available 12/02/2022 Sex: Unknown Functional Status Question Answer Note LastModified by Organizat ion Details LastModified Time Do you use any illicit or recreational drugs? No Information not available 12/02/2022 What is your level of alcohol consumption? Occasional Information not available 12/02/2022 Are you currently employed? Yes Information not available 12/02/2022 Have you been exposed to chemicals or toxins? 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 Moderate Information not available 12/02/2022 Mental Status None recorded. Family History Relationship Description Onset Age of this Age Resolved Age Notes LastModified by Organization Details LastModified Time Mother Diabetes mellitus [email or web address] Not available 2022 15:35:43 Father Harmful pattern of use of alcohol [email or web address] Not available 2022 15:35:51 Father Migraine [email or web address] Not available 0 12/02/2022 15:35:58 Father Cerebrovascu lar accident [email or web address] Not available 16:41:50 Maternal Uncle Heart disease [email or web address] Not available 2022 15:36:07 Maternal Uncle Cerebrovascu lar accident [email or web address] Not available 16:41:29 Medical History No medical history recorded. Past Encounters Encounter ID Performer Location Encounter Start Date Encounter Closed Date Diagnosis/Indication Diagnosis SNOMED-CT Code Diagnosis ICD10 Code Diagnosis Note [id number] Nishant Gardner MD [facility] [address] 0 12/02/2022 15:56:22 12/02/2022 16:57:45 Sleep apnea 39927668 G47.30 G47.33 G47.36 G47.61 [id number] Nishant Gardner MD [place] [id number] 01/11/2023 09:28:58 01/14/2023 08:43:24 Sleep apnea 00260073 G47.30 G47.33 G47.36 G47.61 Health Concerns Section Related Observation LastModified by Organization Detai ls LastModified Time None Recorded Concern Status LastModified by Organization Details LastModified Time None Recorded Advance Directives Directive None Recorded Payers Encounter Date Sequence Insurance Name Policy Number Policy Sue Covered Member ID Sue Member ID Guarantor Name 12/02/2022 1 [facility] ([facility] [id number] Chan Aquino [id number] Jose Martin Aquino 01/11/2023 1 [facility] ([facility] [id number] Chan Aquino [id number] Jose Martin Aquino Notes Date Note Type Note Provider Name and Address Organization Details Recorded Time 12/02/2022 text/html Primary care/Ref erring provider: Gris London MD At home, the patient sleeps from 12 am to 6:30 am and wakes up with an alarm. Snoring: moderate, since .Snorting: noChoking: noCoughing: noGasping: noGagging: noSighing: noWitnessed apnea: yesTwitching or jerking of leg(s), arm(s), body, head: yesTeeth grinding: noTeeth clenching: noSleeptalking: yesSleepwalking: noSleep crying: noBedwetting: noTongue/lip/gum/cheek biting: noSleeping with open mouth: yesSleep paralysis: noHypnagogic hallucinations: noHypnopompic hallucinations: noVivid dreams: yesDifficulty with sleep onset: yesDifficulty with sleep maintenance: yesSleep interruptions: nocturia x 10Patient wakes up with: fatigue, headaches, cognitive impairmentDaytime cataplexy: noMorning hypersomnolence: yesAfternoon hypersomnolence: yesCaffeine sources in diet: tea 1/3 bottle per day, soda 1 can per month, chocolate 1/3 candy bar per day Associated medical and psychiatric conditions:Congestive heart failure: noCoronary artery disease: noMyocardial infarction: noHypertension: noStroke: noBronchial asthma: noChronic obstructive pulmonary disease: noDepression: noBipolar disorder: noAnxiety: noPanic disorder: noPosttraumatic stress disorder: noAttention deficit and hyperactivity disorder: noObsessive Compulsive disorder: noSchizophrenia: noSchizoaffective disorder: noPersonality disorder: noChronic analgesic use: noChronic sedative/hypnotic use: no EPWORTH SLEEPINESS SCALE (ESS) CHANCE OF DOZING SCORE0 = would never doze1 = slight chance of dozing2 = moderate chance of dozing3 = high chance of dozing SITUATION AND CHANCE OF DOZINGSitting and reading - 1Watching television - 1Sitting inactive in a public place (e.g. a theater or meeting) - 2As a passenger in a car for an hour without a break - 3Lying down to rest in the afternoon when circumstances permit - 3Sitting and talking to someone - 0Sitting quietly after lunch without alcohol - 1In a car, while stopped for a few minutes in the traffic - 0TOTAL SCORE 11Subjectively, patient has a moderate chance of dozing. Nishant Gardner MD [address] [place] [address], [phone], [facility] [employer] 12/02/2022 16:54:11 01/11/2023 text/html Primary care/Ref erring provider: Gris London MD During the [facility] home sleep study on 01/04/23, AHI = 49. At home, the patient sleeps from 12 am to 6:30 am and wakes up with an alarm. Snoring: moderate, since .Snorting: noChoking: noCoughing: noGasping: noGagging: noSighing: noWitnessed apnea: yesTwitching or jerking of leg(s), arm(s), body, head: yesTeeth grinding: noTeeth clenching: noSleeptalking: yesSleepwalking: noSleep crying: noBedwetting: noTongue/lip/gum/cheek biting: noSleeping with open mouth: yesSleep paralysis: noHypnagogic hallucinations: noHypnopompic hallucinations: noVivid dreams: yesDifficulty with sleep onset: yesDifficulty with sleep maintenance: yesSleep interruptions: nocturia x 10Patient wakes up with: fatigue, headaches, cognitive impairmentDaytime cataplexy: noMorning hypersomnolence: yesAfternoon hypersomnolence: yesCaffeine sources in diet: tea 1/3 bottle per day, soda 1 can per month, chocolate 1/3 candy bar per day Associated medical and psychiatric conditions:Congestive heart failure: noCoronary artery disease: noMyocardial infarction: noHypertension: noStroke: noBronchial asthma: noChronic obstructive pulmonary disease: noDepression: noBipolar disorder: noAnxiety: noPanic disorder: noPosttraumatic stress disorder: noAttention deficit and hyperactivity disorder: noObsessive Compulsive disorder: noSchizophrenia: noSchizoaffective disorder: noPersonality disorder: noChronic analgesic use: noChronic sedative/hypnotic use: no EPWORTH SLEEPINESS SCALE (ESS) CHANCE OF DOZING SCORE0 = would never doze1 = slight chance of dozing2 = moderate chance of dozing3 = high chance of dozing SITUATION AND CHANCE OF DOZINGSitting and reading - 1Watching television - 1Sitting inactive in a public place (e.g. a theater or meeting) - 1As a passenger in a car for an hour without a break - 3Lying down to rest in the afternoon when circumstances permit - 3Sitting and talking to someone - 0Sitting quietly after lunch without alcohol - 1In a car, while stopped for a few minutes in the traffic - 0TOTAL SCORE 10Subjectively, patient has a moderate chance of dozing. Nishant Gardner MD [address] [place] [address], [id number], [place] [facility] [employer] [facility] 01/11/2023 10:30:06
--- OUTSIDE RECORDS SUMMARY | 2024-09-08 01:32 | XMS_ITS | Data Portability ---
Author Organization [facility] Address [address] [place] [address] Assessment No assessment recorded. Plan of Treatment Reminders Order Date Submit Date Provider Last Modified By Organization Details Last Modified Time Details Appointments None recor ded. Lab urina lysis compl ete, refle x cultu re 2024 025 MARHSADL Irvin, [address], [address], [place], [address], 5 06:22:23 CT + NG RNA, PCR, unspe cifie d speci men 2024 025 [facility], [address], [address], [place], [address], 5 06:22:22 prote in, total , 24-ho ur urine 2024 025 [facility], 2022 Sus[address]ero, [address], [place], [address], 5 06:22:24 urina lysis macro (dips tick) panel , urine 2023 024 MARSHA Irvin, 2022 [address], [address], [place], [address], 4 13:09:40 CMP, serum or plasm a 2023 024 [facility], [address], [address], [place], [address], 4 13:09:35 CBC w/ auto diff 2023 [facility], 2022 Sus[address]ero, [address], [place], [address], 4 13:09:43 lipid panel , serum 2023 024 [facility], 2022 Sus[address] Lucero, [address], [place], [address], 4 13:09:34 CK (crea tamika kinas e), total , serum 2023 [facility], 2022 Sus[address] Lucero, [address], [place], [address], 4 13:09:37 HbA1c (hemo globi n A1c), blood 2023 024 [facility], [address]22 Sus[address] Lucero, [address], [place], [address], 4 13:09:39 TSH, ultra -sens itive , serum 2023 024 [facility], 20[address] Sus[address], [address], [place], [address], 4 13:09:42 PSA, total , serum or plasm a 2023 024 [facility], [address] Sus[address], [address], [place], [address], 4 13:09:44 potas sium, serum or plasm a 2022 023 [facility], [address] Sus[address]ero, [address], [place], [address], 3 09:18:08 bilir ubin, total + direc t, serum or plasm a 2022 023 [facility], [address]22 Sus[address], [address], [place], [address], 3 09:18:08 CBC w/ auto diff 2022 023 [facility], 2022 Sus[address] Lucero, [address], [place], [address], 3 13:11:56 urina lysis , dipst ick 2022 023 [facility], [address] Sus[address], [address], [place], [address], 3 13:11:56 CMP, serum or plasm a 2022 023 [facility], [address]22 Sus[address] Lucero, [address], [place], [address], 3 13:11:54 lipid panel , serum 2022 023 [facility], [address] Sus[address] Lucero, [address], [place], [address], 3 13:11:53 HIV 1 + 2, meani ngful use set 2022 023 [facility], [address] Sus[address], [address], [place], [address], 3 13:11:58 Hepat itis C IgG Ab, qual, serum 2022 [address] [facility], [address], [address], [place], [address], 3 13:11:52 TSH + free T4, serum 2022 023 [facility], [address] Sus[address] Lucero, [address], [place], [address], 3 13:11:53 HbA1c (hemo globi n A1c), blood 2022 023 CANON [facility], [address], [address], [place], [address], 3 13:11:55 PSA, total , serum or plasm a 2022 023 CANON [facility], [address], [address], [place], [address], 3 13:11:57 vitam in B12, serum 2022 023 [facility], [address], [address], [place], [address], 3 13:11:55 Referral ortho pedic surge on refer ral 2024 025 [facility], [address] [facility], [place], [address], 5 04:11:[address] refer ral 2023 024 MARSHA Beltran MD, [address], [address], [place], [address], 5 19:54:25 physi roegrs thera pist refer ral - Strai n of the L. shoul deuardo and L. elbow . LBP with RLE radic ulopa thy-- - [facility] locat ion 2023 024 [facility], [address], [place], [address], 4 12:07:53 gastr wood aburto ist refer ral 2023 024 MARSHA [facility] Gastro[facility]ology Dept, [address] [facility] , [address], [place], [address], 5 12:20:[address] refer ral - Palpi tatio ns, dizzi ness 2022 023 [facility], [address] [facility], [address], [place], [address], 3 17:05:49 sleep medic ine refer ral - Pleas e r/o FLORENCE 2022 023 MARSHA Gardner MD, [address] [place], [address], 3 21:11:25 gastr wood bachog ist refer ral 2022 023 quita Mello MD, [address] [facility], [facility] [address], [place], [address], 4 19:33:40 Procedures None recor ded. Surgeries None recor ded. Imaging US, scrot um - Scrot al mass [address] [facility] [address] [facility] [place], [address], 5 02:10:25 MRI, shoul eduardo, w/o contr ast - Bilat eral shoul eduardo strai n, L>R. R/O Inter nal deran gemen t 2024 025 johnny [facility] Scheduling, 1 [facility] [place], [address], 5 11:39:25 XR, shoul eduardo 2023 024 [facility] ([facility] Scheduling), [address] [place], [address], 4 11:55:58 XR, lumbo sacra l spine 2023 024 [facility] ([facility]), [address] [place], [address], 4 13:55:49 XR, elbow , 2 view 2023 024 [facility] ([facility] Sched[facility]), [address] [place], [address], 4 13:56:11 XR, chest - SOB, histo ry of COVID and Asthm a 2022 023 [facility] ([facility] Sched[facility]), [address] [place], [address], 3 19:08:04 Medication Orders cyclo benza alyce 5 mg table t 2023 024 [id number], [address] [place], [place], [id number], 4 13:15:59 ibupr ofen 800 mg table t 2023 024 [facility] #[id number], [address] [place], [place], [id number], 4 13:48:20 albut elysia sulfa te HFA 90 mcg/a ctuat ion aeros ol inhal er 2022 023 oajao [facility] #[id number], [address], [place], [place], [id number], 3 16:45:37 albut elysia sulfa te HFA 90 mcg/a ctuat ion aeros ol inhal er 2022 023 [id number], [address], [place], [place], [id number], 3 11:50:47 Patient TargetsNo targets recorded. Patient Instructions Encounter Date Encounter Id Patient Instructions Last Modified By Organization Details Last Modified Time 11/18/2022 [id number] controlling your asthma: care instructions [email or web address] Not available 11/18/2022 11:47:37 learning about asthma oajao Not available 11/18/2022 11:47:37 body mass index: care instructions oajao Not available 11/18/2022 11:20:51 learning about healthy weight oajao Not available 11/18/2022 11:20:50 snoring: care instructions oajao Not available 11/18/2022 11:47:37 neuropathic pain : care instructions oajao Not available 11/18/2022 11:48:[address] Christianson [facility] COVID booster Low salt diet Cardiology GI Weight loss Restart Albuterol CXR Records, [facility] [place], [place] Follow up in 4 weeks Addendum Bryant score 9, he will be referred to the sleep physician. oajao Not available 11/18/2022 19:01:10 His need for the COVID vaccine was discussed in detail. Very extensive visit oajao Not available 11/18/2022 19:06:22 01/04/2023 [id number] influenza (flu) vaccine: care instructions oajao Not available 01/04/2023 16:50:33 Labs Low fat, lo w CHO diet GI as referred Follow up in 6 months and PRN oajao Not available 01/04/2023 16:49:33 03/27/2024 [id number] back care and preventing injuries: care instructions oajao Not available 03/27/2024 13:09:51 body mass index: care instructions oajao Not available 03/27/2024 12:46:57 learning about healthy weight oajao Not available 03/27/2024 12:46:57 Labs Xray Cardiology follow up Call [facility] regarding your Diltiazem GI PT Flexeril Ibuprofen Follow up in 6 weeks oajao Not available 03/27/2024 13:48:06 05/02/2024 [id number] proteinuria: car e instructions oajao Not available 05/02/2024 11:22:35 GI as referred MRI PT? US Orthopedics Follow up in 3-4 weeks [email or web address] Not available 05/02/2024 12:13:36 06/05/2024 [id number] GI (Aug, 2024) Urology as referred Follow up in 6 months and PRN oajao Not available 06/05/2024 18:26:23 Reason for Referral Online Marketing Analyst Referral for Screening for malignant neoplasm of colon Screening colonoscopy, please Referring Physician: [facility], Encounter Date: 11/18/2022 Net Maker Referral for In termittent palpitations Palpitations, dizziness Palpitations, dizziness Referring Physician: Gris [facility], Encounter Date: 11/18/2022 Sleep Medicine Referral for Snoring Please r/o FLORENCE Please r/o FLORENCE Referring Physician: Gris [facility], Encounter Date: 11/18/2022 Physical Therapist Referral for Muscle pain Strain of the L. shoulder and L. elbow. LBP with RLE radiculopathy--- [place] location Referring Physician: Gris [facility], Encounter Date: 03/27/2024 Online Marketing Analyst Referral for Screening for malignant neoplasm of colon Screening colonoscopy, altered bowel function Referring Physician: Gris [facility], Encounter Date: 03/27/2024 Net Maker Referral for Hi story of atrial fibrillation Referring Physician: Gris [facility], Encounter Date: 03/27/2024 Orthopedic Surgeon Referral for Bilateral shoulder joint pain Bilateral shoulder strain Referring Physician: Gris [facility], Encounter Date: 05/02/2024 Results Created Date Observation Date Name Description Value Unit Range Abnormal Flag Note LastModifiedBy Organization Detail LastModifiedTime 11/19/19 23 11/19/2022 HCV ANTIB ORI hep C virus Ab NON REACTI VE nonrea ctive HCV antib ori alone does not diffe renti ate betwe en previ ously resol [place] infec tion and activ e infec tion. Equiv ocal and React brook HCV antib ori resul ts shoul d be follo wed up with an HCV RNA test to suppo rt the diagn osis of activ e HCV infec tion. Not Available [facility] ([facility]) [address], [place], [address], 11/19/2022 13:11:52 11/19/19 23 11/19/2022 LIPID PANEL cholesterol, total 175 mg/dL 100-19 9 Not Available [facility] ([facility]) [address] [place], [address], 11/19/2022 13:11:53 11/19/19 23 11/19/2022 LIPID PANEL triglyceride s 81 mg/dL 0-149 Not Available [facility] ([facility]) [address] [place] [place], [address], 11/19/2022 13:11:53 11/19/19 23 11/19/2022 LIPID PANEL HDL cholesterol 46 mg/dL >39 Not Available [facility] ([facility]) [address] [place], [address], 11/19/2022 13:11:53 11/19/19 23 11/19/2022 LIPID PANEL VLDL cholesterol rogers 15 mg/dL 5-40 Not Available [facility] ([facility]) [address] [place] [place], [address], 11/19/2022 13:11:53 11/19/19 23 11/19/2022 LIPID PANEL LDL chol calc ([facility]) 114 mg/dL 0-99 above high normal Not Available [facility] ([facility]) [address] [place], [address], 11/19/2022 13:11:53 11/19/19 23 11/19/2022 COMP. METAB OLIC PANEL (14) glucose 90 mg/dL 70-99 Not Available [facility] ([facility]) [address] [place], [address], 11/19/2022 13:11:54 11/19/19 23 11/19/2022 COMP. METAB OLIC PANEL (14) BUN 13 mg/dL 6-24 Not Available [facility] ([facility]) [address] [facility] [place], [address], 11/19/2022 13:11:54 11/19/19 23 11/19/2022 COMP. METAB OLIC PANEL (14) creatinine 1.24 mg/dL 0.76-1 .27 Not Available [facility] ([facility]) [address] [place], [address], 11/19/2022 13:11:54 11/19/19 23 11/19/2022 COMP. METAB OLIC PANEL (14) eGFR 72 mL/mi n/1.7 3 >59 Not Available [facility] ([facility]) [address] [place], [address], 11/19/2022 13:11:54 11/19/19 23 11/19/2022 COMP. METAB OLIC PANEL (14) BUN/creatini ne ratio 10 9-20 Not Available [facility] ([facility]) [address] [facility], [place], [address], 11/19/2022 13:11:54 11/19/19 23 11/19/2022 COMP. METAB OLIC PANEL (14) sodium 140 mmol/ L 134-14 4 Not Available [facility] ([facility]) [address] [place], [address], 11/19/2022 13:11:54 11/19/19 23 11/19/2022 COMP. METAB OLIC PANEL (14) potassium 5.4 mmol/ L 3.5-5. 2 above high normal Not Available [facility] ([facility]) [address] [place], [address], 11/19/2022 13:11:54 11/19/19 23 11/19/2022 COMP. METAB OLIC PANEL (14) chloride 101 mmol/ L 96-106 Not Available [facility] ([facility]) [address] [place], [address], 11/19/2022 13:11:54 11/19/19 23 11/19/2022 COMP. METAB OLIC PANEL (14) carbon dioxide, total 25 mmol/ L 20- Not Available [facility] ([facility]) [address] [facility], [place], [address], 11/19/2022 13:11:54 11/19/19 23 11/19/2022 COMP. METAB OLIC PANEL (14) calcium 9.4 mg/dL 8.7-10 .2 Not Available [facility] ([facility]) [address], [place], [address], 11/19/2022 13:11:54 11/19/19 23 11/19/2022 COMP. METAB OLIC PANEL (14) protein, total 7.6 g/dL 6.0-8. 5 Not Available [facility] ([facility]) [address] [place], [address], 11/19/2022 13:11:54 11/19/19 23 11/19/2022 COMP. METAB OLIC PANEL (14) albumin 4.5 g/dL 4.1-5. 1 Not Available [facility] ([facility]) [address] [place], [address], 11/19/2022 13:11:54 11/19/19 23 11/19/2022 COMP. METAB OLIC PANEL (14) globulin, total 3.1 g/dL 1.5-4. 5 Not Available [facility] ([facility]) [address] [place], [address], 11/19/2022 13:11:54 11/19/19 23 11/19/2022 COMP. METAB OLIC PANEL (14) A/G ratio 1.5 1.2-2. 2 Not Available [facility] ([facility]) [address] [facility], [place], [address], 11/19/2022 13:11:54 11/19/19 23 11/19/2022 COMP. METAB OLIC PANEL (14) bilirubin, total 1.3 mg/dL 0.0-1. 2 above high normal Not Available [facility] ([facility]) [address] [place], [address], 11/19/2022 13:11:54 11/19/19 23 11/19/2022 COMP. METAB OLIC PANEL (14) alkaline phosphatase 76 IU/L 44-121 Not Available [facility] ([facility]) [address] [facility], [place], [address], 11/19/2022 13:11:54 11/19/19 23 11/19/2022 COMP. METAB OLIC PANEL (14) AST (SGOT) 18 IU/L 0-40 Not Available [facility] ([facility]) [address] [facility], [place], [address], 11/19/2022 13:11:54 11/19/19 23 11/19/2022 COMP. METAB OLIC PANEL (14) ALT (SGPT) 19 IU/L 0-44 Not Available [facility] ([facility]) [address] [place], [address], 11/19/2022 13:11:54 11/19/19 23 11/19/2022 HEMOG LOBIN A1C hemoglobin A1C 5.0 % 4.8-5. 6 Predi abete s: 5.7 - 6.4 Diabe edwina: >6.4 Glyce julia contr ol for adult s with diabe edwina: <7.0 Not Available [facility] ([facility]) [address], [place], [address], 11/19/2022 13:11:54 11/19/19 23 11/19/2022 URINA LYSIS , ROUTI NE specific gravity 1.028 1.005- 1.030 Not Available [facility] ([facility]) [address] [place], [address], 11/19/2022 13:11:56 11/19/1911/19/2022 URINA LYSIS , ROUTI NE pH 5.5 5.0-7. 5 Not Available [facility] ([facility]) [address], [place], [address], 11/19/2022 13:11:56 11/19/19 23 11/19/2022 URINA LYSIS , ROUTI NE urine-color YELLOW yellow Not Available [facility] ([facility]) [address], [place], [address], 11/19/2022 13:11:56 11/19/1911/19/2022 URINA LYSIS , ROUTI NE appearance CLEAR clear Not Available [facility] ([facility]) [address] [facility] [address], [place], [address], 11/19/2022 13:11:56 11/19/19 23 11/19/2022 URINA LYSIS , ROUTI NE WBC esterase NEGATI VE negati ve Not Available [facility] ([facility]) [address], [place], [address], 11/19/2022 13:11:56 11/19/1911/19/2022 URINA LYSIS , ROUTI NE protein TRACE negati ve/tra ce Not Available [facility] ([facility]) [address] [facility], [place], [address], 11/19/2022 13:11:56 11/19/1911/19/2022 URINA LYSIS , ROUTI NE glucose NEGATI VE negati ve Not Available [facility] ([facility]) [address] [place], [address], 11/19/2022 13:11:56 11/19/19 23 11/19/2022 URINA LYSIS , ROUTI NE ketones TRACE negati ve abnormal Not Available [facility] ([facility]) [address] [facility] [facility] [address], [place], [address], 11/19/2022 13:11:56 11/19/19 23 11/19/2022 URINA LYSIS , ROUTI NE occult blood NEGATI VE negati ve Not Available [facility] ([facility]) [address] [facility] [facility] [address], [place], [address], 11/19/2022 13:11:56 11/19/19 23 11/19/2022 URINA LYSIS , ROUTI NE bilirubin NEGATI VE negati ve Not Available [facility] ([facility]) [address] [facility], [place], [address], 11/19/2022 13:11:56 11/19/1911/19/2022 URINA LYSIS , ROUTI NE urobilinogen ,semi-qn 1.0 mg/dL 0.2-1. 0 Not Available [facility] ([facility]) [address], [place], [address], 11/19/2022 13:11:56 11/19/19 23 11/19/2022 URINA LYSIS , ROUTI NE nitrite, urine NEGATI VE negati ve Not Available [facility] ([facility]) [address], [place], [address], 11/19/2022 13:11:56 11/19/19 23 11/19/2022 URINA LYSIS , ROUTI NE microscopic examination COMMEN T Micro scopi c not indic ated and not perfo rmed. Not Available [facility] ([facility]) [address], [place], [address], 11/19/2022 13:11:56 11/19/1911/19/2022 CBC WITH DIFFE RENTI AL/PL ATELE T WBC 5.3 x10e3 /uL 3.4-10 .8 Not Available [facility] ([facility]) [address], [place], [address], 11/19/2022 13:11:56 11/19/19 23 11/19/2022 CBC WITH DIFFE RENTI AL/PL ATELE T RBC 5.28 x10e6 /uL 4.14-5 .80 Not Available [facility] ([facility]) [address], [place], [address], 11/19/2022 13:11:56 11/19/19 23 11/19/2022 CBC WITH DIFFE RENTI AL/PL ATELE T hemoglobin 15.3 g/dL 13.0-1 7.7 Not Available [facility] ([facility]) [address], [place], [address], 11/19/2022 13:11:56 11/19/1911/19/2022 CBC WITH DIFFE RENTI AL/PL ATELE T hematocrit 49.0 % 37.5-5 1.0 Not Available [facility] ([facility]) [address] [place], [address], 11/19/2022 13:11:56 11/19/1911/19/2022 CBC WITH DIFFE RENTI AL/PL ATELE T MCV 93 fL 79-97 Not Available [facility] ([facility]) [address] [place], [address], 11/19/2022 13:11:56 11/19/1911/19/2022 CBC WITH DIFFE RENTI AL/PL ATELE T MCH 29.0 pg 26.6-3 3.0 Not Available [facility] ([facility]) [address] [place], [address], 11/19/2022 13:11:56 11/19/1911/19/2022 CBC WITH DIFFE RENTI AL/PL ATELE T MCHC 31.2 g/dL 31.5-3 5.7 below low normal Not Available [facility] ([facility]) [address] [place], [address], 11/19/2022 13:11:56 11/19/1911/19/2022 CBC WITH DIFFE RENTI AL/PL ATELE T RDW 11.8 % 11.6-1 5.4 Not Available [facility] ([facility]) [address], [place], [address], 11/19/2022 13:11:56 11/19/19 23 11/19/2022 CBC WITH DIFFE RENTI AL/PL ATELE T platelets 327 x10e3 /uL 150-45 0 Not Available [facility] ([facility]) [address], [place], [address], 11/19/2022 13:11:56 11/19/19 23 11/19/2022 CBC WITH DIFFE RENTI AL/PL ATELE T neutrophils 49 % notest ab. Not Available [facility] ([facility]) [address], [place], [address], 11/19/2022 13:11:56 11/19/19 23 11/19/2022 CBC WITH DIFFE RENTI AL/PL ATELE T lymphs 38 % notest ab. Not Available [facility] ([facility]) [address], [place], [address], 11/19/2022 13:11:56 11/19/19 23 11/19/2022 CBC WITH DIFFE RENTI AL/PL ATELE T monocytes 7 % notest ab. Not Available [facility] ([facility]) [address], [place], [address], 11/19/2022 13:11:56 11/19/19 23 11/19/2022 CBC WITH DIFFE RENTI AL/PL ATELE T eos 5 % notest ab. Not Available [facility] ([facility]) [address], [place], [address], 11/19/2022 13:11:56 11/19/19 23 11/19/2022 CBC WITH DIFFE RENTI AL/PL ATELE T basos 1 % notest ab. Not Available [facility] ([facility]) [address], [place], [address], 11/19/2022 13:11:56 11/19/19 23 11/19/2022 CBC WITH DIFFE RENTI AL/PL ATELE T neutrophils (absolute) 2.6 x10e3 /uL 1.4-7. 0 Not Available [facility] ([facility]) [address], [place], [address], 11/19/2022 13:11:56 11/19/19 23 11/19/2022 CBC WITH DIFFE RENTI AL/PL ATELE T lymphs (absolute) 2.0 x10e3 /uL 0.7-3. 1 Not Available [facility] ([facility]) [address], [place], [address], 11/19/2022 13:11:56 11/19/19 23 11/19/2022 CBC WITH DIFFE RENTI AL/PL ATELE T monocytes(ab solute) 0.4 x10e3 /uL 0.1-0. 9 Not Available [facility] ([facility]) [address], [place], [address], 11/19/2022 13:11:56 11/19/19 23 11/19/2022 CBC WITH DIFFE RENTI AL/PL ATELE T eos (absolute) 0.3 x10e3 /uL 0.0-0. 4 Not Available [facility] ([facility]) [address], [place], [address], 11/19/2022 13:11:56 11/19/19 23 11/19/2022 CBC WITH DIFFE RENTI AL/PL ATELE T baso (absolute) 0.0 x10e3 /uL 0.0-0. 2 Not Available [facility] ([facility]) [address], [place], [address], 11/19/2022 13:11:56 11/19/19 11/19/2022 CBC WITH DIFFE RENTI AL/PL ATELE T immature granulocytes 0 % notest ab. Not Available [facility] ([facility]) [address], [place], [address], 11/19/2022 13:11:56 11/19/1911/19/2022 CBC WITH DIFFE RENTI AL/PL ATELE T immature grans (abs) 0.0 x10e3 /uL 0.0-0. 1 Not Available [facility] ([facility]) [address], [place], [address], 11/19/2022 13:11:56 11/19/1911/19/2022 HIV AB/P2 4 AG WITH REFLE X HIV Ab/P24 Ag screen NON REACTI VE nonrea ctive HIV Negat brook HIV-1 /HIV- 2 antib odies and HIV-1 p24 antig en were NOT detec fabio. There is no labor atory evide nce of HIV infec tion. Not Available [facility] ([facility]) [address], [place], [address], 11/19/2022 13:11:58 11/19/1911/19/2022 PROST ATE-S PECIF IC AG prostate specific Ag 1.1 NG/mL 0.0-4. 0 Craig ECLIA metho dolog y. Accor ding to the Ameri can [employer]o g[employer] iatio n, Serum PSA shoul d decre ase and remai n at undet ectab le level s after radic al prost atect lam. The AUA defin es bioch emica l recur rence as an initi al PSA value 0.2 ng/mL or great er follo wed by a subse quent confi rmato ry PSA value 0.2 ng/mL or great er. Value s obtai viri with diffe rent assay metho ds or kits canno t be used inter infante eably . Resul ts canno t be inter prete d as absol [place] evide nce of the prese nce or absen ce of charlene nant disea se. Not Available [facility] ([facility]) [address] [place], [address], 11/19/2022 13:11:57 11/19/1911/19/2022 VITAM IN B12 vitamin B12 431 pg/mL 232-12 45 Not Available [facility] ([facility]) [address] [place], [address], 11/19/2022 13:11:55 11/19/1911/19/2022 TSH+F REE T4 TSH 1.450 uIU/m L 0.450- 4.500 Not Available [facility] ([facility]) [address] [place], [address], 11/19/2022 13:11:53 11/19/1911/19/2022 TSH+F REE T4 T4,free(dire ct) 1.32 NG/dL 0.82-1 .77 Not Available [facility] ([facility]) [address] [place], [address], 11/19/2022 13:11:53 01/05/2001/05/2023 POTAS SIUM potassium 5.1 mmol/ L 3.5-5. 2 Not Available [facility] ([facility]) [address] [place], [address], 01/05/2023 09:18:08 01/05/2001/05/2023 BILIR UBIN, TOTAL /DIRE CT, SERUM bilirubin, total 1.3 mg/dL 0.0-1. 2 above high normal Not Available [facility] ([facility]) [address] [place], [address], 01/05/2023 09:18:08 01/05/2001/05/2023 BILIR UBIN, TOTAL /DIRE CT, SERUM bilirubin, direct 0.31 mg/dL 0.00-0 .40 Not Available [facility] ([facility]) [address] [place], [address], 01/05/2023 09:18:08 01/05/20 23 01/05/2023 BILIR UBIN, TOTAL /DIRE CT, SERUM bilirubin, indirect 0.99 mg/dL 0.10-0 .80 above high normal Not Available [facility] ([facility]) [address] [facility], [place], [address], 01/05/2023 09:18:08 03/27/20 24 03/28/2024 LIPID PANEL cholesterol, total 167 mg/dL 100-19 9 Not Available [facility] ([facility]) [address] [place], [address], 03/28/2024 13:09:33 03/27/20 24 03/28/2024 LIPID PANEL triglyceride s 85 mg/dL 0-149 Not Available [facility] ([facility]) [address] [place], [address], 03/28/2024 13:09:33 03/27/20 24 03/28/2024 LIPID PANEL HDL cholesterol 43 mg/dL >39 Not Available [facility] ([facility]) [address] [place], [address], 03/28/2024 13:09:33 03/27/20 24 03/28/2024 LIPID PANEL VLDL cholesterol rogers 16 mg/dL 5-40 Not Available [facility] ([facility]) [address] [place], [address], 03/28/2024 13:09:33 03/27/20 24 03/28/2024 LIPID PANEL LDL chol calc ([facility]) 108 mg/dL 0-99 above high normal Not Available [facility] ([facility]) [address] [place], [address], 03/28/2024 13:09:33 03/27/20 24 03/28/2024 COMP. METAB OLIC PANEL (14) glucose 97 mg/dL 70-99 Not Available [facility] ([facility]) [address], [place], [address], 03/28/2024 13:09:35 03/27/20 24 03/28/2024 COMP. METAB OLIC PANEL (14) BUN 13 mg/dL 6-24 Not Available [facility] ([facility]) [address] [facility], [place], [address], 03/28/2024 13:09:35 03/27/20 24 03/28/2024 COMP. METAB OLIC PANEL (14) creatinine 1.13 mg/dL 0.76-1 .27 Not Available [facility] ([facility]) [address] [place], [address], 03/28/2024 13:09:35 03/27/20 24 03/28/2024 COMP. METAB OLIC PANEL (14) eGFR 80 mL/mi n/1.7 3 >59 Not Available [facility] ([facility]) [address] [facility], [place], [address], 03/28/2024 13:09:35 03/27/20 24 03/28/2024 COMP. METAB OLIC PANEL (14) BUN/creatini ne ratio 12 9-20 Not Available [facility] ([facility]) [address] [facility], [place], [address], 03/28/2024 13:09:35 03/27/20 24 03/28/2024 COMP. METAB OLIC PANEL (14) sodium 140 mmol/ L 134-14 4 Not Available [facility] ([facility]) [address] [facility], [place], [address], 03/28/2024 13:09:35 03/27/20 24 03/28/2024 COMP. METAB OLIC PANEL (14) potassium 4.9 mmol/ L 3.5-5. 2 Not Available [facility] ([facility]) [address] [facility], [place], [address], 03/28/2024 13:09:35 03/27/20 24 03/28/2024 COMP. METAB OLIC PANEL (14) chloride 103 mmol/ L 96-106 Not Available [facility] ([facility]) [address] [facility], [place], [address], 03/28/2024 13:09:35 03/27/20 24 03/28/2024 COMP. METAB OLIC PANEL (14) carbon dioxide, total 21 mmol/ L 20-29 Not Available [facility] ([facility]) [address] [facility], [place], [address], 03/28/2024 13:09:35 03/27/20 24 03/28/2024 COMP. METAB OLIC PANEL (14) calcium 8.9 mg/dL 8.7-10 .2 Not Available [facility] ([facility]) [address] [facility], [place], [address], 03/28/2024 13:09:35 03/27/20 24 03/28/2024 COMP. METAB OLIC PANEL (14) protein, total 7.1 g/dL 6.0-8. 5 Not Available [facility] ([facility]) [address] [facility], [place], [address], 03/28/2024 13:09:35 03/27/20 24 03/28/2024 COMP. METAB OLIC PANEL (14) albumin 4.3 g/dL 4.1-5. 1 Not Available [facility] ([facility]) [address] [place], [address], 03/28/2024 13:09:35 03/27/20 24 03/28/2024 COMP. METAB OLIC PANEL (14) globulin, total 2.8 g/dL 1.5-4. 5 Not Available [facility] ([facility]) [address] [facility], [place], [address], 03/28/2024 13:09:35 03/27/20 24 03/28/2024 COMP. METAB OLIC PANEL (14) bilirubin, total 1.0 mg/dL 0.0-1. 2 Not Available [facility] ([facility]) [address] [place], [address], 03/28/2024 13:09:35 03/27/20 24 03/28/2024 COMP. METAB OLIC PANEL (14) alkaline phosphatase 77 IU/L 44-121 Not Available [facility] ([facility]) [address] [facility], [place], [address], 03/28/2024 13:09:35 03/27/20 24 03/28/2024 COMP. METAB OLIC PANEL (14) AST (SGOT) 17 IU/L 0-40 Not Available [facility] ([facility]) [address] [facility], [place], [address], 03/28/2024 13:09:35 03/27/20 24 03/28/2024 COMP. METAB OLIC PANEL (14) ALT (SGPT) 15 IU/L 0-44 Not Available [facility] ([facility]) [address] [facility], [place], [address], 03/28/2024 13:09:35 03/27/20 24 03/28/2024 MICRO SCOPI C EXAMI NATIO N WBC 11-30 /hpf 0-5 abnormal Not Available [facility] ([facility]) [address] [place], [address], 03/28/2024 13:09:37 03/27/20 24 03/28/2024 MICRO SCOPI C EXAMI NATIO N RBC 0-2 /hpf 0-2 Not Available [facility] ([facility]) [address] [place], [address], 03/28/2024 13:09:37 03/27/20 24 03/28/2024 MICRO SCOPI C EXAMI NATIO N epithelial cells (non renal) 0-10 /hpf 0-10 Not Available [facility] ([facility]) [address] [facility], [place], [address], 03/28/2024 13:09:37 03/27/20 24 03/28/2024 MICRO SCOPI C EXAMI NATIO N casts PRESEN T /lpf nonese en abnormal Not Available [facility] ([facility]) [address] [facility], [place], [address], 03/28/2024 13:09:37 03/27/20 24 03/28/2024 MICRO SCOPI C EXAMI NATIO N cast type HYALIN E CASTS Not Available [facility] ([facility]) [address] [facility], [place], [address], 03/28/2024 13:09:37 03/27/20 24 03/28/2024 MICRO SCOPI C EXAMI NATIO N mucus threads PRESEN T notest ab. Not Available [facility] ([facility]) [address] [facility], [place], [address], 03/28/2024 13:09:37 03/27/20 24 03/28/2024 MICRO SCOPI C EXAMI NATIO N bacteria NONE SEEN nonese en/few Not Available [facility] ([facility]) [address] [facility], [place], [address], 03/28/2024 13:09:37 03/27/20 24 03/28/2024 CREAT INE KINAS E,TOT AL creatine kinase,total 186 U/L 49-439 Not Available [facility] ([facility]) [address] [facility], [place], [address], 03/28/2024 13:09:37 03/27/20 24 03/28/2024 HEMOG LOBIN A1C hemoglobin A1C 5.2 % 4.8-5. 6 Predi abete s: 5.7 - 6.4 Diabe edwina: >6.4 Glyce julia contr ol for adult s with diabe edwina: <7.0 Not Available [facility] ([facility]) [address] [facility], [place], [address], 03/28/2024 13:09:39 03/27/20 24 03/28/2024 URINA LYSIS , ROUTI NE specific gravity >=1.03 0 1.005- 1.030 abnormal Not Available [facility] ([facility]) [address] [facility], [place], [address], 03/28/2024 13:09:40 03/27/20 24 03/28/2024 URINA LYSIS , ROUTI NE pH 5.5 5.0-7. 5 Not Available [facility] ([facility]) [address] [facility], [place], [address], 03/28/2024 13:09:40 03/27/20 24 03/28/2024 URINA LYSIS , ROUTI NE urine-color YELLOW yellow Not Available [facility] ([facility]) [address] [facility], [place], [address], 03/28/2024 13:09:40 03/27/20 24 03/28/2024 URINA LYSIS , ROUTI NE appearance CLEAR clear Not Available [facility] ([facility]) [address] [facility], [place], [address], 03/28/2024 13:09:40 03/27/20 24 03/28/2024 URINA LYSIS , ROUTI NE WBC esterase 2+ negati ve abnormal Not Available [facility] ([facility]) [address] [place], [address], 03/28/2024 13:09:40 03/27/20 24 03/28/2024 URINA LYSIS , ROUTI NE protein 1+ negati ve/tra ce abnormal Not Available [facility] ([facility]) [address] [place], [address], 03/28/2024 13:09:40 03/27/20 24 03/28/2024 URINA LYSIS , ROUTI NE glucose NEGATI VE negati ve Not Available [facility] ([facility]) [address] [place], [address], 03/28/2024 13:09:40 03/27/20 24 03/28/2024 URINA LYSIS , ROUTI NE ketones TRACE negati ve abnormal Not Available [facility] ([facility]) [address] [place], [address], 03/28/2024 13:09:40 03/27/20 24 03/28/2024 URINA LYSIS , ROUTI NE occult blood NEGATI VE negati ve Not Available [facility] ([facility]) [address] [place], [address], 03/28/2024 13:09:40 03/27/20 24 03/28/2024 URINA LYSIS , ROUTI NE bilirubin NEGATI VE negati ve Not Available [facility] ([facility]) [address] [place], [address], 03/28/2024 13:09:40 03/27/20 24 03/28/2024 URINA LYSIS , ROUTI NE urobilinogen ,semi-qn 1.0 mg/dL 0.2-1. 0 Not Available [facility] ([facility]) [address] [place], [address], 03/28/2024 13:09:40 03/27/20 24 03/28/2024 URINA LYSIS , ROUTI NE nitrite, urine NEGATI VE negati ve Not Available [facility] ([facility]) [address] [place], [address], 03/28/2024 13:09:40 03/27/20 24 03/28/2024 URINA LYSIS , ROUTI NE microscopic examination SEE BELOW: Micro scopi c was indic ated and was perfo rmed. Not Available [facility] ([facility]) [address] [place], [address], 03/28/2024 13:09:40 03/27/20 24 03/28/2024 TSH TSH 1.700 uIU/m L 0.450- 4.500 Not Available [facility] ([facility]) [address] [place], [address], 03/28/2024 13:09:42 03/27/20 24 03/28/2024 CBC WITH DIFFE RENTI AL/PL ATELE T WBC 4.9 x10e3 /uL 3.4-10 .8 Not Available [facility] ([facility]) [address] [place], [address], 03/28/2024 13:09:43 03/27/20 24 03/28/2024 CBC WITH DIFFE RENTI AL/PL ATELE T RBC 4.93 x10e6 /uL 4.14-5 .80 Not Available [facility] ([facility]) [address] [facility], [place], [address], 03/28/2024 13:09:43 03/27/20 24 03/28/2024 CBC WITH DIFFE RENTI AL/PL ATELE T hemoglobin 14.7 g/dL 13.0-1 7.7 Not Available [facility] ([facility]) [address] [place], [address], 03/28/2024 13:09:43 03/27/20 24 03/28/2024 CBC WITH DIFFE RENTI AL/PL ATELE T hematocrit 44.7 % 37.5-5 1.0 Not Available [facility] ([facility]) [address] [place], [address], 03/28/2024 13:09:43 03/27/20 24 03/28/2024 CBC WITH DIFFE RENTI AL/PL ATELE T MCV 91 fL 79-97 Not Available [facility] ([facility]) [address] [place], [address], 03/28/2024 13:09:43 03/27/20 24 03/28/2024 CBC WITH DIFFE RENTI AL/PL ATELE T MCH 29.8 pg 26.6-3 3.0 Not Available [facility] ([facility]) [address] [facility], [place], [address], 03/28/2024 13:09:43 03/27/20 24 03/28/2024 CBC WITH DIFFE RENTI AL/PL ATELE T MCHC 32.9 g/dL 31.5-3 5.7 Not Available [facility] ([facility]) [address] [facility], [place], [address], 03/28/2024 13:09:43 03/27/20 24 03/28/2024 CBC WITH DIFFE RENTI AL/PL ATELE T RDW 11.5 % 11.6-1 5.4 below low normal Not Available [facility] ([facility]) [address] [facility], [place], [address], 03/28/2024 13:09:43 03/27/20 24 03/28/2024 CBC WITH DIFFE RENTI AL/PL ATELE T platelets 311 x10e3 /uL 150-45 0 Not Available [facility] ([facility]) [address] [facility], [place], [address], 03/28/2024 13:09:43 03/27/20 24 03/28/2024 CBC WITH DIFFE RENTI AL/PL ATELE T neutrophils 45 % notest ab. Not Available [facility] ([facility]) [address] [facility], [place], [address], 03/28/2024 13:09:43 03/27/20 24 03/28/2024 CBC WITH DIFFE RENTI AL/PL ATELE T lymphs 42 % notest ab. Not Available [facility] ([facility]) [address] [place], [address], 03/28/2024 13:09:43 03/27/20 24 03/28/2024 CBC WITH DIFFE RENTI AL/PL ATELE T monocytes 8 % notest ab. Not Available [facility] ([facility]) [address] [facility], [place], [address], 03/28/2024 13:09:43 03/27/20 24 03/28/2024 CBC WITH DIFFE RENTI AL/PL ATELE T eos 4 % notest ab. Not Available [facility] ([facility]) [address] [facility], [place], [address], 03/28/2024 13:09:43 03/27/20 24 03/28/2024 CBC WITH DIFFE RENTI AL/PL ATELE T basos 1 % notest ab. Not Available [facility] ([facility]) [address] [facility], [place], [address], 03/28/2024 13:09:43 03/27/20 24 03/28/2024 CBC WITH DIFFE RENTI AL/PL ATELE T neutrophils (absolute) 2.2 x10e3 /uL 1.4-7. 0 Not Available [facility] ([facility]) [address] [facility], [place], [address], 03/28/2024 13:09:43 03/27/20 24 03/28/2024 CBC WITH DIFFE RENTI AL/PL ATELE T lymphs (absolute) 2.1 x10e3 /uL 0.7-3. 1 Not Available [facility] ([facility]) [address] [place], [address], 03/28/2024 13:09:43 03/27/20 24 03/28/2024 CBC WITH DIFFE RENTI AL/PL ATELE T monocytes(ab solute) 0.4 x10e3 /uL 0.1-0. 9 Not Available [facility] ([facility]) [address] [place], [address], 03/28/2024 13:09:43 03/27/20 24 03/28/2024 CBC WITH DIFFE RENTI AL/PL ATELE T eos (absolute) 0.2 x10e3 /uL 0.0-0. 4 Not Available [facility] ([facility]) [address] [facility], [place], [address], 03/28/2024 13:09:43 03/27/20 24 03/28/2024 CBC WITH DIFFE RENTI AL/PL ATELE T baso (absolute) 0.0 x10e3 /uL 0.0-0. 2 Not Available [facility] ([facility]) [address] [facility], [place], [address], 03/28/2024 13:09:43 03/27/20 24 03/28/2024 CBC WITH DIFFE RENTI AL/PL ATELE T immature granulocytes 0 % notest ab. Not Available [facility] ([facility]) [address] [facility], [place], [address], 03/28/2024 13:09:43 03/27/20 24 03/28/2024 CBC WITH DIFFE RENTI AL/PL ATELE T immature grans (abs) 0.0 x10e3 /uL 0.0-0. 1 Not Available [facility] ([facility]) [address] [facility], [place], [address], 03/28/2024 13:09:43 03/27/20 24 03/28/2024 PROST ATE-S PECIF IC AG prostate specific Ag 1.2 NG/mL 0.0-4. 0 Craig ECLIA metho dolog y. Accor ding to the Ameri can [employer] g[employer] iatio n, Serum PSA shoul d decre ase and remai n at undet ectab le level s after radic al prost atect lam. The AUA defin es bioch emica l recur rence as an initi al PSA value 0.2 ng/mL or great er follo wed by a subse quent confi rmato ry PSA value 0.2 ng/mL or great er. Value s obtai viri with diffe rent assay metho ds or kits canno t be used inter naresh boles . Resul ts canno t be inter prete d as absol [place] evide nce of the prese nce or absen [facility]. Not Available [facility] ([facility]) [address] [facility], [place], [address], 03/28/2024 13:09:44 05/08/1905/10/2024 CHLAM YDIA/ GC AMPLI FICAT ION chlamydia trachomatis, EDISON NEGATI VE negati ve Not Available [facility] ([facility]) [address] [place], [address], 05/10/2024 06:22:21 05/08/1905/10/2024 CHLAM YDIA/ GC AMPLI FICAT ION neisseria gonorrhoeae, EDISON NEGATI VE negati ve Not Available [facility] ([facility]) [address] [place], [address], 05/10/2024 06:22:21 05/08/1905/09/2024 UA WITH CULTU RE REFLE X specific gravity 1.018 1.005- 1.030 Not Available [facility] ([facility]) [address] [place], [address], 05/10/2024 06:22:23 05/08/19 25 05/09/2024 UA WITH CULTU RE REFLE X pH 6.5 5.0-7. 5 Not Available [facility] ([facility]) [address] [place], [address], 05/10/2024 06:22:23 05/08/19 25 05/09/2024 UA WITH CULTU RE REFLE X urine-color YELLOW yellow Not Available [facility] ([facility]) [address] [place], [address], 05/10/2024 06:22:23 05/08/19 25 05/09/2024 UA WITH CULTU RE REFLE X appearance CLEAR clear Not Available [facility] ([facility]) [address] [facility], [place], [address], 05/10/2024 06:22:23 05/08/19 25 05/09/2024 UA WITH CULTU RE REFLE X WBC esterase NEGATI VE negati ve Not Available [facility] ([facility]) [address] [facility], [place], [address], 05/10/2024 06:22:23 05/08/19 25 05/09/2024 UA WITH CULTU RE REFLE X protein NEGATI VE negati ve/tra ce Not Available [facility] ([facility]) [address] [facility], [place], [address], 05/10/2024 06:22:23 05/08/19 25 05/09/2024 UA WITH CULTU RE REFLE X glucose NEGATI VE negati ve Not Available [facility] ([facility]) [address] [facility], [place], [address], 05/10/2024 06:22:23 05/08/19 25 05/09/2024 UA WITH CULTU RE REFLE X ketones NEGATI VE negati ve Not Available [facility] ([facility]) [address] [facility], [place], [address], 05/10/2024 06:22:23 05/08/19 25 05/09/2024 UA WITH CULTU RE REFLE X occult blood NEGATI VE negati ve Not Available [facility] ([facility]) [address] [facility], [place], [address], 05/10/2024 06:22:23 05/08/19 25 05/09/2024 UA WITH CULTU RE REFLE X bilirubin NEGATI VE negati ve Not Available [facility] ([facility]) [address] [place], [address], 05/10/2024 06:22:23 05/08/19 25 05/09/2024 UA WITH CULTU RE REFLE X urobilinogen ,semi-qn 1.0 mg/dL 0.2-1. 0 Not Available [facility] ([facility]) [address] [place], [address], 05/10/2024 06:22:23 05/08/19 25 05/09/2024 UA WITH CULTU RE REFLE X nitrite, urine NEGATI VE negati ve Not Available [facility] ([facility]) [address] [place], [address], 05/10/2024 06:22:23 05/08/19 25 05/09/2024 UA WITH CULTU RE REFLE X microscopic examination COMMEN T Micro scopi c not indic ated and not perfo rmed. Not Available [facility] ([facility]) [address] [place], [address], 05/10/2024 06:22:23 05/08/19 25 05/09/2024 UA WITH CULTU RE REFLE X urinalysis reflex COMMEN T This speci men will not refle x to a Urine Cultu re. Not Available [facility] ([facility]) [address] [place], [address], 05/10/2024 06:22:23 05/08/19 25 05/09/2024 PROTE IN TOTAL , QN, 24-HR URINE protein,tota l,urine 8.5 mg/dL notest ab. Not Available [facility] ([facility]) [address] [place], [address], 05/10/2024 06:22:24 05/08/19 25 05/09/2024 PROTE IN TOTAL , QN, 24-HR URINE prot,24HR calculated 162 mg/24 _HR 30-150 above high normal Not Available [facility] ([facility]) [address] [place], [address], 05/10/2024 06:22:24 07/22/19 25 07/21/2024 Blood type and Indir ect antib ori scree n panel - Blood blood group antibody screen [presence] in serum or plasma NEG Antib ori Scree n NEG 07/21 5:01 PM [facility] Not Available Not Available 08/18/2024 12:19:16 07/22/19 25 07/21/2024 Blood type and Indir ect antib ori scree n panel - Blood ABO and Rh group [type] in blood O POS ABO Rh O POS 07/21 5:01 PM [facility] Not Available Not Available 08/18/2024 12:19:16 07/22/19 25 07/21/2024 Basic metab olic 2000 panel - Serum or Plasm a urea nitrogen [mass/volume ] in serum or plasma 16 mg/dL low: 7mg/dL high: 26mg/d L BUN 16 7 - 26 mg/dL 07/21 4:21 PM [facility] Not Available Not Available 08/18/2024 12:19:16 07/22/1907/21/2024 Basic metab olic 1999 panel - Serum or Plasm a creatinine [mass/volume ] in serum or plasma 1 mg/dL low: 0.71mg /dLhig h: 1.16mg /dL Creat inine 1.00 0.71 - 1.16 mg/dL 07/21 4:21 PM T [facility] Not Available Not Available 08/18/2024 12:19:16 07/22/19 25 07/21/2024 Basic metab olic 1999 panel - Serum or Plasm a sodium [moles/volum e] in serum or plasma 141 mmol/ L low: 136mmo l/Lhig h: 145mmo l/L Sodiu m 141 136 - 145 mmol/ L 07/21 4:21 PM CDT [facility] Not Available Not Available 08/18/2024 12:19:16 07/22/19 25 07/21/2024 Basic metab olic 2000 panel - Serum or Plasm a potassium [moles/volum e] in serum or plasma 4.4 mmol/ L low: 3.5mmo l/Lhig h: 4.5mmo l/L Potas sium 4.4 3.5 - 4.5 mmol/ L 07/21 4:21 PM CDT [facility] Not Available Not Available 08/18/2024 12:19:16 07/22/1907/21/2024 Basic metab olic 1999 panel - Serum or Plasm a chloride [moles/volum e] in serum or plasma 107 mmol/ L low: 98mmol /Lhigh : 107mmo l/L Chlor jamison 107 98 - 107 mmol/ L 07/21 4:21 PM CDT [facility] Not Available Not Available 08/18/2024 12:19:16 07/22/1907/21/2024 Basic metab olic 1999 panel - Serum or Plasm a carbon dioxide, total [moles/volum e] in serum or plasma 28 mmol/ L low: 22mmol /Lhigh : 29mmol /L CO2 28 22 - 29 mmol/ L 07/21 4:21 PM CDT [facility] Not Available Not Available 08/18/2024 12:19:16 07/22/1907/21/2024 Basic metab olic 1999 panel - Serum or Plasm a glucose [mass/volume ] in serum or plasma 96 mg/dL low: 70mg/d Lhigh: 99mg/d L Gluco se 96 70 - 99 mg/dL 07/21 4:21 PM CDT [facility] Not Available Not Available 08/18/2024 12:19:16 07/22/1907/21/2024 Basic metab olic 1999 panel - Serum or Plasm a calcium [moles/volum e] in serum or plasma 8.8 mg/dL low: 8.4mg/ dLhigh : 10.2mg /dL Calci um 8.8 8.4 - 10.2 mg/dL 07/21 4:21 PM CDT [facility] Not Available Not Available 08/18/2024 12:19:16 07/22/1907/21/2024 Basic metab olic 1999 panel - Serum or Plasm a anion gap 6 low: 6high: 16 Anion Gap 6 6 - 16 07/21 4:21 PM CDT [facility] [employer] [facility] Not Available Not Available 08/18/2024 12:19:16 07/22/19 25 07/21/2024 Basic metab olic 2000 panel - Serum or Plasm a urea nitrogen/cre atinine [mass ratio] in serum or plasma 16 low: 7high: 23 BUN/C reati nine Ratio 16 7 - 23 07/21 4:21 PM CDT [facility] [employer] [facility] Not Available Not Available 08/18/2024 12:19:16 07/22/19 25 07/21/2024 Basic metab olic 1999 panel - Serum or Plasm a osmolality calculated 293 text: 275 - 295 mOsm/k g Osmol ality Calcu lated 293 275 - 295 mOsm/ kg 07/21 4:21 PM T [facility] [employer] [facility] Not Available Not Available 08/18/2024 12:19:16 07/22/1907/21/2024 Basic metab olic 2000 panel - Serum or Plasm a glomerular filtration rate [volume rate/area] in serum, plasma or blood by creatinine-b ased formula (CKD-epi 2020)/1.73 sq M text: >=90 mL/min /1.73 m2 eGFR by CKD-E PI >90 >=90 mL/mi n/1.7 3 m2 07/21 4:21 PM T [facility] [employer] [facility] Not Available Not Available 08/18/2024 12:19:16 07/22/1907/21/2024 Basic metab olic 2000 panel - Serum or Plasm a interpretati on and review of laboratory results Normal Not Available Not Available 12/2024 12:19:16 07/22/1907/21/2024 CBC panel - Blood by Autom ated count leukocytes [#/volume] in blood by automated count 6.7 text: 4.0 - 10.7 x10e9/ L WBC 6.7 4.0 - 10.7 x10E9 /L 07/21 4:02 PM [facility] Not Available Not Available 08/18/2024 12:19:16 07/22/1907/21/2024 CBC panel - Blood by Autom ated count erythrocytes [#/volume] in blood by automated count 4.76 text: 4.30 - 5.80 x10e12 /L RBC Count 4.76 4.30 - 5.80 x10E1 2/L 07/21 4:02 PM [facility] Not Available Not Available 08/18/2024 12:19:16 07/22/1907/21/2024 CBC panel - Blood by Autom ated count hemoglobin [mass/volume ] in blood 13.6 g/dL low: 13.3g/ dLhigh : 17.5g/ dL Hemog lobin 13.6 13.3 - 17.5 g/dL 07/21 4:02 PM [facility] Not Available Not Available 08/18/2024 12:19:16 07/22/1907/21/2024 CBC panel - Blood by Autom ated count hematocrit [volume fraction] of blood by automated count 42.9 % low: 38.7%h igh: 51.1% Hemat ocrit 42.9 38.7 - 51.1 % 07/21 4:02 PM [facility] Not Available Not Available 08/18/2024 12:19:16 07/22/1907/21/2024 CBC panel - Blood by Autom ated count MCV [entitic mean volume] in red blood cells by automated count 90.1 fL low: 80fLhi gh: 98fL MCV 90.1 80.0 - 98.0 fL 07/21 4:02 PM [facility] Not Available Not Available 08/18/2024 12:19:16 07/22/1907/21/2024 CBC panel - Blood by Autom ated count MCH [entitic mass] by automated count 28.6 pg low: 26.7pg high: 33.6pg MCH 28.6 26.7 - 33.6 pg 07/21 4:02 PM [facility] Not Available Not Available 08/18/2024 12:19:16 07/22/1907/21/2024 CBC panel - Blood by Autom ated count MCHC [entitic mass/volume] in red blood cells by automated count 31.7 g/dL low: 31.7g/ dLhigh : 36.3g/ dL MCHC 31.7 31.7 - 36.3 g/dL 07/21 4:02 PM [facility] Not Available Not Available 08/18/2024 12:19:16 07/22/1907/21/2024 CBC panel - Blood by Autom ated count erythrocyte [distwidth] in red blood cells by automated count 12.2 % low: 11.3%h igh: 14.8% RDW-C V 12.2 11.3 - 14.8 % 07/21 4:02 PM [facility] Not Available Not Available 08/18/2024 12:19:16 07/22/1907/21/2024 CBC panel - Blood by Autom ated count platelets [#/volume] in blood by automated count 295 text: 150 - 420 x10e9/ L Plate let Count 295 150 - 420 x10E9 /L 07/21 4:02 PM [facility] [employer] [facility] Not Available Not Available 08/18/2024 12:19:16 07/22/1907/21/2024 CBC panel - Blood by Autom ated count platelet [entitic mean volume] in blood by automated count 9.5 fL low: 7.8fLh igh: 11.4fL MPV 9.5 7.8 - 11.4 fL 07/21 4:02 PM [facility] [employer] [facility] Not Available Not Available 08/18/2024 12:19:16 07/22/1907/21/2024 CBC panel - Blood by Autom ated count interpretati on and review of laboratory results Normal Not Available Not Available 12/2024 12:19:16 08/03/19 25 08/02/2024 Blood type and Indir ect antib ori scree n panel - Blood blood group antibody screen [presence] in serum or plasma NEG Antib ori Scree n NEG 08/02 12:13 PM CDT [facility] Not Available Not Available 08/18/2024 12:19:17 08/03/1908/02/2024 Blood type and Indir ect antib ori scree n panel - Blood ABO and Rh group [type] in blood O POS ABO Rh O POS 08/02 12:13 PM CDT [facility] Not Available Not Available 08/18/2024 12:19:17 12/31/1912/30/2022 rhyth m strip * No observ ation record ed. [facility] [address], [place], [address], 01/04/2023 16:38:52 01/01/20 23 12/31/2022 XR, chest No observ ation record ed. [address], [address], 01/04/2023 16:38:52 01/19/20 23 01/18/2023 cardi ac stres s test No observ ation record ed. [facility] [address], [place], [address], 03/27/2024 12:56:25 01/19/20 23 01/18/2023 trans -thor acic echoc ardio gram (TTE) (PROC ) No observ ation record ed. [facility] [address], [place], [address], 03/27/2024 12:56:25 03/30/20 24 03/29/2024 XR, shoul eduardo No observ ation record ed. [facility] [address], [place], [address], 05/02/2024 11:19:59 03/30/20 24 03/29/2024 XR, shoul eduardo No observ ation record ed. [facility] [address], [place], [address], 05/02/2024 11:19:59 03/30/20 24 03/29/2024 XR, lumbo sacra l spine No observ ation record ed. [facility] [address], [place], [address], 05/02/2024 11:19:59 03/30/20 24 03/29/2024 XR, elbow , 2 view No observ ation record ed. [facility] [address], [place], [address], 05/02/2024 11:19:59 05/04/19 25 05/04/2024 US, scrot um No observ ation record ed. [facility] [address] [facility], [place], [address], 06/05/2024 15:45:36 Result Notes None recorded. 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, [place], [address] , [place] [facility] 4 13:46:34 SARS-CoV-2 vaccinatio n declined 0097133121 Active 2023 Gris Bolden MD Attn: Accounting ,[address], [place], [address] , [facility] 4 13:46:37 Low back pain 306801902 Active 2024 Gris Bolden MD Attn: Accounting ,[address], [place], [address] , [facility] 5 13:11:12 Hernia of abdominal cavity 30722263 Active Not Available [facility] 3 14:45:37 Asthma 657509808 Active Not Available [facility] 3 14:45:36 Overweight 150525501 Active Not Available [facility] 3 14:45:36 Problem Notes None recorded. Procedures Surgical History Date Name Laterality Status Provider Name and Address Organization Details Recorded Time 04/12/2015 Hernia Repair completed Gris Bolden MD Attn: Accounting, [facility], [place], [place], [address] [place] [address], [facility] 11/18/2022 11:25:57 Imaging Results None recorded. Procedure Notes None recorded. Medical Equipment None Reported. Allergies Allergen ID Allergen Name Allergen Category Reaction Reaction Severity Criticality Documentation Date Start Date Code Code System Note Provider Name and Address Organization Details Recorded Time 35216 Product containin g penicilli n (product) medicatio n Not available Not available Not available 02/06/2015 94226 8001 SNOMED Other react ions and sever ities : 'Adve rse react ion to subst ance' . Gris Bolden MD Attn: Accountin g,[address], [place], [address], [facility] 4 12:39:40 Medications Name Sig Start Date Stop Date Status Note LastModified by Organization Details LastModified Time promethazi ne hcl 25 mg tabs 11/18 completed Not Available Not Available Not Available ciprofloxa shayne hcl 500 mg tabs 11/18 completed Not Available Not Available Not Available ventolin hfa 108 (90 base) mcg/actaer s 11/18 completed Not Available Not Available Not Available oxycodone/ acetaminop hen 5-325 mg tabs 11/18 completed Not Available Not Available Not Available ibuprofen 800 mg tabs 11/18 completed Not Available Not Available Not Available metronidaz ole 500 mg tabs 11/18 completed Not Available Not Available Not Available hydrocodon e/acetamin ophen 10-325 mg tabs 11/18 completed Not Available Not Available Not Available hydrocodon e/acetamin ophen 5-325 mgtabs 11/18 completed Not Available Not Available Not Available clindamyci n HCl 300 mg capsule 11/18 completed Not Available Not Available Not Available ibuprofen 800 mg tablet TAKE 1 TABLET BY MOUTH THREE TIMES DAILY WITH MEALS FOR 14 DAYS FOR PAIN active Not Available Not Available No t Available hydrocodon e 5 mg-acetami nophen 325 mg tablet 11/18 completed Not Available Not Available Not Available metronidaz ole 500 mg tablet 11/18 completed Not Available Not Available Not Available acetaminop hen 300 mg-codeine 30 mg tablet 11/18 completed Not Available Not Available Not Available Cardizem CD 180 mg capsule,ex tended release Take 1 capsule every day by oral route. active Dr Beltran Not Available Not Available Not Available ciprofloxa shayne 500 mg tablet 11/18 completed Not Available Not Available Not Available hydrocodon e 10 mg-acetami nophen 325 mg tablet 11/18 completed Not Available Not Available Not Available oxycodone- acetaminop hen 5 mg-325 mg tablet 11/18 completed Not Available Not Available Not Available promethazi ne 25 mg tablet 11/18 completed Not Available Not Available Not Available albuterol sulfate HFA 90 mcg/actuat ion aerosol inhaler INHALE 2 PUFFS BY MOUTH EVERY 6 TO 8 HOURS NEEDED active Not Available Not Available No t Available cyclobenza alyce 5 mg tablet TAKE 1 TABLET BY MOUTH THREE TIMES DAILY FOR 14 DAYS DIRECTED FOR MUSCLE STRAIN active Not Available Not Available No t Available ibuprofen 11/18 completed Not Available Not Available Not Available Vitals Date Recorded Body height Body mass index (BMI) Body weight Heart rate Oxygen saturation Oxygen saturation in Arterial blood by Pulse oximetry Respiratory rate Systolic blood pressure Diastolic blood pressure Provider Name and Address Organization Details Last Updated DateTime 5 175.26 cm 52.1 kg/m2 842128. 11 g 78 /min 96 % 96 % 16 /min 126 mm[Hg] 80 mm[Hg] Treasure Ruvalcaba [place] [facility] 5 11:14:37 Date Recorded Body height Body mass index (BMI) Body weight Heart rate Oxygen saturation Oxygen saturation in Arterial blood by Pulse oximetry Respiratory rate Body temperature Systolic blood pressure Diastolic blood pressure Provider Name and Address Organization Details Last Updated DateTime 5 175.26 cm 52.3 kg/m2 229469. 7 g 74 /min 96 % 96 % 18 /min 97.9 [degF] 116 mm[Hg] 84 mm[Hg] Treasure Ruvalcaba [place] [facility] 5 15:31:48 Date Recorded Body height Body mass index (BMI) Body weight Oxygen saturation Oxygen saturation in Arterial blood by Pulse oximetry Respiratory rate Heart rate Systolic blood pressure Diastolic blood pressure Provider Name and Address Organization Details Last Updated DateTime 3 175.26 cm 49.3 kg/m2 802257. 85 g 96 % 96 % 18 /min 82 /min 130 mm[Hg] 86 mm[Hg] Treasure Ruvalcaba [place] [facility] 3 11:15:15 Date Recorded Body height Body mass index (BMI) Body weight Oxygen saturation Oxygen saturation in Arterial blood by Pulse oximetry Heart rate Respiratory rate Systolic blood pressure Diastolic blood pressure Provider Name and Address Organization Details Last Updated DateTime 3 175.26 cm 49.2 kg/m2 360769. 26 g 96 % 96 % 72 /min 16 /min 124 mm[Hg] 86 mm[Hg] Tresaure Ruvalcaba [place] [facility] 3 16:09:32 Date Recorded Body weight Body mass index (BMI) Body height Heart rate Oxygen saturation Oxygen saturation in Arterial blood by Pulse oximetry Respiratory rate Systolic blood pressure Diastolic blood pressure Provider Name and Address Organization Details Last Updated DateTime 4 328069. 92 g 51.8 kg/m2 175.26 cm 86 /min 96 % 96 % 18 /min 116 mm[Hg] 84 mm[Hg] Treasure Ruvalcaba [place] [facility] 4 12:36:30 Social History Question Answer Notes LastModified by Organizat ion Details LastModified Time Tobacco Smoking Status Never Smoker July Xu [place], [place] - [facility] 02/06/2015 14:44:31 Do You Have An Advance Directive? No Information not available 02/06/2015 How Many Years Have You Consumed Alcohol? 22 Information not available 11/18/2022 Are You Blind Or Do You Have Difficulty Seeing? No Information not available 11/18/2022 What Is Your Level Of Caffeine Consumption? Moderate Information not available 02/06/2015 Are You Deaf Or Do You Have Serious Difficulty Hearing? No Information not available 11/18/2022 What Type Of Diet Are You Following? REGULAR Information not available 11/18/2022 Education 12 Information no t available 02/06/2015 Are There Any Guns Present In Your Home? No Information not available 02/06/2015 Hard Of Hearing Or Deaf In One Or Both Ears? No Information not available 02/06/2015 Legally Blind In One Or Both Eyes? No Information not available 02/06/2015 Marital Status Single Informatio n not available 02/06/2015 What Was The Date Of Your Most Recent Tobacco Screening? 06/05/2024 Information not available 06/05/2024 Performs Monthly Self-breast Exam? No Information not available 02/06/2015 Do You Use Your Seat Belt Or Car Seat Routinely? Yes Information not available 11/18/2022 Seat Belts Used Routinely Yes Information not available 02/06/2015 Smoke Alarm In Home Yes Information not available 02/06/2015 How Much Tobacco Do You Smoke? No Information not available 02/06/2015 Do You Use Sunscreen Routinely? No Information not available 02/06/2015 Has Tobacco Cessation Counseling Been Provided? Yes Information not available 11/18/2022 On What Date Was Tobacco Cessation Counseling Provided? 11/18/2022 Information not available 11/18/2022 Sex: Unknown Functional Status Question Answer Note LastModified by Organizat ion Details LastModified Time Do you use any illicit or recreational drugs? No Information not available 11/18/2022 Do you or have you ever used any other forms of tobacco or nicotine? No Information not available 11/18/2022 What is your level of alcohol consumption? Occasional Information not available 02/06/2015 Are you currently employed? Yes Information not available 11/18/2022 Are you able to care for yourself? 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 Family History Relationship Description Onset Age of this Age Resolved Age Notes LastModified by Organization Details LastModified Time Mother Diabetes mellitus asavala Not available 2014 14:44:31 Father Harmful pattern of use of alcohol asavala Not available 2014 14:44:31 Father Migraine asavala Not available 02/06/2015 14:44:31 Maternal Uncle Heart disease hdoverma Not available 2022 11:11:46 Medical History Condition Response Coronary Artery Disease N Other N High Blood Pressure N Atrial Fibrillation N Thyroid Problems N Kidney or Bladder Problems N GI Problems N Depression N COPD N Blood Clots N Skin Problems N Anemia N Heart Attack (DC) N Anxiety Disorder N Diabetes N Muscle, Joint, or Bone Problems N Seizures/Epilepsy N Acid Reflux (GERD) N Cancer N Stroke N Asthma Y Allergies N High Cholesterol N Hepatitis N Liver Disease N Headaches N Osteoporosis N Heart Failure N Immunizations Vaccine Type Date Status Note Provider Nam e and Address Organization Details Recorded Time Influenza, split virus, quadrivalent, PF 01/04/2023 completed Treasure Ruvalcaba MA [place], [place] - [facility] 01/04/2023 17:13:17 Past Encounters Encounter ID Performer Location Encounter Start Date Encounter Closed Date Diagnosis/Indication Diagnosis SNOMED-CT Code Diagnosis ICD10 Code Diagnosis Note [id number] Gris Bolden MD [facility] (Adult Med) [address] [place] [address] 02/06/2015 14:19:39 02/06/2015 15:17:04 Viral screening 098809619 Z11.59 General ex amination of patient 216765734 Z00.01 Hernia of abdominal cavity 91363619 K40.91 LIH for which he needs to see the surgeon, he was warned of the need to seek emergent care with nausea vomiting and severe groin pain. Motrin prn with a snack. Asthma 828679032 J45.90 9 Overweight 736199833 E66 .3 [id number] Gris Bolden MD [facility] (Adult Med) [address] [place] [phone] 11/18/2022 10:54:48 11/20/2022 10:41:05 General examination of patient 532424843 Z00.01 Body mass index 40+ - severely obese 742038908 Z68.42 Screening for malignant neoplasm of colon 340351964 Z12.11 Immunization advised 310 197772 Z71.9 History of SARS-CoV-2 29 36471434 27976922 Z86.16 Requires a tetanus booster 802154582 Z28.39 Asthma 661457061 J45.90 9 Snoring 70002696 R06.83 Intermitte nt palpitations 346598085 R00.2 Neuropathy 268683308 G62 .9 Screening for malignant neoplasm of prostate 905195600 Z12.5 Elevated blood-pressure reading without diagnosis of hypertension 195173826 R03.0 [id number] Gris Bolden MD [facility] (Adult Med) [address] [place] [phone] 01/04/2023 15:30:14 01/05/2023 10:13:00 Administration of influenza vaccine 96324179 Z23 Asthma 905073795 J45.90 9 Laboratory test result abnormal 071865640 R89.9 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 [id number] Gris Bolden MD [facility] (Adult Med) [address] [place] [phone] 03/27/2024 12:24:13 04/04/2024 10:54:25 Screening for malignant neoplasm of prostate 515609424 Z12.5 General ex amination of patient 580319815 Z00.00 Unintentio nal weight gain 8759496594 23613 R63.5 Body mass index 40+ - severely obese 186160718 Z68.43 Muscle pain 14682585 M79 .10 Pulmonary hypertension 88930874 I27.20 History of atrial fibrillation 004320260 Z86.79 SARS-CoV-2 vaccination declined 3330968219 Z28.21 Lumbar radiculopathy 128 174730 M54.16 Low back pain 304569181 M54.50 Altered louise wel function 44531295 R19.4 Screening for malignant neoplasm of colon 629826265 Z12.11 Muscle strain 02483418 T 14.8XXA Bilateral shoulder joint pain 6766580403 8980558 M25.512 M25.511 Pain of ri ght elbow joint 0003361198 2449150 M25.163 [id number] Gris Bolden MD [facility] (Adult Med) [address] [place] [phone] 05/02/2024 11:03:09 05/03/2024 09:45:41 Low back pain 899366762 M54.50 Lumbar radiculopathy 128 453288 M54.16 Bilateral shoulder joint pain 6329520268 5002882 M25.512 M25.511 MRI to r/o an internal derangemen tOrthopedi cs History of atrial fibrillation 319822599 Z86.79 On Diltiazem Proteinuria 82796987 R80 .9 Abnormal urinalysis 1672 82569 R82.90 Scrotal mass 33906522 N5 0.89 Hydrocele? [id number] Gris Bolden MD [facility] (Adult Med) [address] [place] [phone] 06/05/2024 15:09:07 06/06/2024 13:13:08 Scrotal mass 64087079 N50.89 [place] 05/04/2024 mass and Hydrocele Proteinuria 77567726 R80 .9 Health Concerns Section Related Observation LastModified by Organization Detai ls LastModified Time None Recorded Concern Status LastModified by Organization Details LastModified Time None Recorded Advance Directives Directive N: Payers Encounter Date Sequence Insurance Name Policy Number Policy Sue Covered Member ID Sue Member ID Guarantor Name 11/18/2022 1 *SELF PAY* Jefe Aquino 11/18/2022 1 [employer] [facility] [id number] Chan Aquino [id number] Chan Aquino 01/04/2023 1 [employer] [facility] [employer] [id number] Chan Aquino [id number] Chan Aquino 03/27/2024 1 [employer] [facility] [employer] [id number] Chan Aquino [id number] Chan Aquino 03/27/2024 1 [facility] [id number] Jose Martin Aquino [id number] Chan Aquino 05/02/2024 1 [facility] [id number] Jose Martin Aquino [id number] Chan Aquino 06/05/2024 1 [facility] [id number] Jose Martin Aquino [id number] Chan Aquino Notes Date Note Type Note Provider Name and Address Organization Details Recorded Time 11/19/19 text/htm l I had COVID, last year, ever since then, my breathing has been off and onLast year, my lady ....It just beat real fast and I just get light headedAll day 47 y/o BM who was last seen as a new patient on 02/06/2015, he had his hernia repaired shortly after that visit and was doing relatively well until early this year when he came down with severe COVID while in [place]. He also lost his to COVID and since then he has noticed that he is more SOB. He has underlying Asthma, has no history of HTN and he passed a DOT physical recently. He snores but there are no witnessed apneic episodes. He has been having intermittent palpitations with associated dizziness independent of what he is doing, he did not report associated chest pain or SOB and this predated his COVID infection. His caffeine intake is minimal, he does not smoke and he denies recreational drugs or using energy drinks. He also has constant numbness on the lateral aspect of the RLE. Gris Bolden MD Attn: Accounting,[address], [place], [address], [facility] 11/18/2022 19:07:01 01/05/20 23 text/htm l I go for the heart monitor check on the Gris Bolden MD Attn: Accounting,[address], [place], [address], [facility] 01/04/2023 16:56:49 03/27/20 24 text/htm l Back PainReported bypatient.Quality:tingling Severity:worsening Duration:acute Onset/Timing:first episode Context:trauma Alleviating Factors:relieved by changing position Aggravating Factors:movement/positioning Associated Symptoms:no fever; no weak limbs; no numbness of the legs/feet; no tingling; no incontinence; no shortness of breathElbow/ForearmReported bypatient.Hand Dominance:left Location:right Quality:aching Severity:severe Duration:weeks Timing:acute Context:work injury Alleviating Factors:NSAIDs Aggravating Factors:ROM Associated Symptoms:no weakness; no numbness; no tingling; no swelling; no redness; no warmth; no ecchymosis; no catching/locking; no popping/clicking; no buckling; no grinding; no instability; no radiation down arm; no drainage; no fever; no chills; no weight loss; no change in bowel/bladder habits Previous Surgery:none Prior Imaging:none Previous Injections:none Previous PT:none Work Related:yes Working:regular dutyMusculoskeletal PainReported bypatient.Location:pain radiating to the legs right; bilateral shoulder (L>R); arm; right elbow (R); lumbar spine; foot Quality:sharp Severity:worsening;interferenc e with work Duration:present <1 month Timing:constant Context:trauma Alleviating factors:relieved by changing position Aggravating factors:movement/positioning Associated Symptoms:no fever; no weak limbs; no tingling; no incontinence;numbness of the legs/feet(R) ADL (Activities of Daily Living)improve with medicationShoulderReported bypatient.Hand Dominance:left Location:left Quality:aching Severity:severe Duration:weeks Timing:acute Context:work injury Alleviating Factors:OTC medication Aggravating Factors:ROM Associated Symptoms:no weakness; no numbness; no tingling; no swelling; no redness; no warmth; no ecchymosis; no catching/locking; no popping/clicking; no buckling; no grinding; no instability; no radiation down arm; no drainage; no fever; no chills; no weight loss; no change in bowel/bladder habits Previous Surgery:none Prior Imaging:none Previous Injections:none Previous PT:none Work Related:yes Working:regular duty I hurt my back, my elbow and my shoulderMy legs started burningI was supposed to see a GI doctor, it just hurts 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 It appears that the device gave way and although he did not fall, he almost did and subsequently developed pain in both shoulders, his right elbow and his lower back. He also has numbness in the anterior part of the right thigh. he was seen at urgent care. He followed up with his roll trucker but [facility] has [facility] and never did get the sleep study done as they kept on rescheduling the test. With regards to his screening colonoscopy, he still needs to get that done and he also complains of bowel movements that may occur every other day or 4/day with vague abdominal pain. Admitted to an OSH 03/18/2023-03/19/2023 with; SVT, A. Flutter/AFIB, Dyspnea and Mild Pulm HTN.NL CC 02/03/2023TTE 01/15/2023 DD, EF 45%. Gris Bolden MD Attn: Accounting,[address] [place] [address], [address], [facility] 03/27/2024 13:49:27 05/02/19 25 text/htm l problems-MaleReported bypatient.Location:scrotum Quality:dull Severity:mild Duration:started: Onset/Timing:worse Modifying Factors:nothing gives relief Associated Symptoms:no penile lesions/sores; no scrotal lesions/sores; no penile discharge; no flank pain; no jaundice; no blood in the urine; no pain during urination; no impotence; Scrotal lesionShoulderReported bypatient.Hand Dominance:right Location:bilateral (L>R) Quality:aching Severity:severe; pain level 8/10 Duration:weeks Timing:chronic Context:work injury Alleviating Factors:nothing helps Associated Symptoms:no weakness; no numbness; no tingling; no swelling; no redness; no warmth; no ecchymosis; no catching/locking; no popping/clicking; no buckling; no grinding; no instability; no radiation down arm; no drainage; no fever; no chills; no weight loss; no change in bowel/bladder habits Doing a follow upI know that there is nothing showing up on the xray, but I am wondering about doing a MRI, because my shoulder is still killing meSometimes when I start driving, my leg starts burningIn my sac, almost like a rock In the interim, he was seen by the roll trucker, the physical therapist and the GI appointment is scheduled for 05/04/2024 He is a right handed man who developed bilateral shoulder pain while he was at work. He was twisting a landing gear with both hands and it came loose. Since then, he has noticed L>R shoulder pain as well as lower back pain with radiation to the LE. The event was on 03/16/2024 and he was seen at urgent care on 03/17/2024 He reports a firm lesion in his scrotum, there were initially two, but they now seem to have fused into one. He denies any urinary symptoms. Gris Bolden MD Attn: Accounting,[address], [place], [address], [facility] 05/02/2024 13:11:33 06/05/19 25 text/htm l When I went, they said since it was a workman's comp injury... Mr Aquino has to reschedule his appointment with the orthopedic surgeon Gris Bolden MD Attn: Accounting,[address], [place], [address], [facility] 06/05/2024 18:26:57
[2024-09-08 10:02] VITALS: BP 118/98; PULSE 75; RESP 18; TEMP 36.3; O2SAT 100; BMI 52.2
[2024-09-08] MEDS: LACTATED RINGERS 1,000 ML 150 ML IV CONT (10:13)
--- NOTE | 2024-09-08 10:47 | WPDANESEPPF ---
Anes - Initial Pre Proc Eval Procedure: Operation Date: 09/08/24 11:00 Proposed Procedures p Screening Colonoscopy - Domingo Saini MD Date/Time: 09/08/24 10:47 Surgeon: Domingo Saini MD Pre Op Diagnosis: malignant neoplasm of colon Patient Data Age: 49 Gender: M Height: 1.75 m Weight: 160.6 kg Last Vital Signs Temp 97.3 F L 09/08/24 10:02 Pulse 75 09/08/24 10:02 Resp 18 09/08/24 10:02 BP 118/98 H 09/08/24 10:02 Pulse Ox 100 09/08/24 10:02 O2 Del Method Room Air 09/08/24 10:02 Allergies Allergy/AdvReac Type Severity Reaction Status Date / Time Penicillins AdvReac Unknown Verified 09/08/24 10:01 Home Medications ?Medication ?Instructions ?Recorded ?Confirmed ?Type No Home Medications 08/28/24 08/28/24 History Patient hx anesthesia problems: none Family hx anesthesia problems: none Results Review: All pre-operative results and documents have been reviewed as part of the pre-operative evaluation. [facility] Social History Social History Smoking status: Never smoker Alcohol intake: current Alcohol use details: Occasionally 2 a month Substance use: never Substance use type: does not use Living arrangements: with family Spiritual care concerns: No Anes - Eval Final PreProcedure Day of Procedure 09/08/24 10:47 Patient weight: morbidly obese Lungs: normal air movement Airway: Mallampati scale class II Neurological: alert and oriented Last oral intake: >/= 8 hours ASA classification: III Emergent: no Anesthetic plan: proceed Anesthesia type and monitoring: general GIVS and standard monitoring Results Review: All pre-operative results and documents have been reviewed as part of the pre-operative evaluation. BMI 52. Pt reports hx of afib ablation approx 2022 w success. Apparently released from cardio but does see PCP. Pt reports physically active without cp or sob. Informed Consent: The patient's anesthetic plan and its attendant risks and benefits were discussed with the patient/family/POA. Questions were solicited and answers provided to the satisfaction of the patient/family/POA.
--- NOTE | 2024-09-08 11:14 | PM.IMHP ---
H&P: HPI History of Present Illness Date/Time: 09/08/24 11:14 Chief Complaint: Screening colonoscopy Narrative: This is the patient's first colonoscopy. There are no GI symptoms and there is no family history of colorectal cancer. Review of Systems Review of Systems: All systems reviewed & are unremarkable except as noted in HPI and below [facility] Social History Social History Smoking status: Never smoker Alcohol intake: current Alcohol use details: Occasionally 2 a month Substance use: never Substance use type: does not use Living arrangements: with family Spiritual care concerns: No Meds Home Medications and Allergies Home Medications ?Medication ?Instructions ?Recorded ?Confirmed ?Type No Home Medications 08/28/24 08/28/24 History Allergies Allergy/AdvReac Type Severity Reaction Status Date / Time Penicillins AdvReac Unknown Verified 09/08/24 10:01 Vital Signs Vital Signs - 24 hr 09/08/24 10:02 Temperature 97.3 F L Pulse Rate 75 Respiratory Rate 18 Blood Pressure 118/98 H Pulse Oximetry 100 Oxygen Delivery Room Air Exam Const: General: cooperative and healthy appearing Resp: Effort & Inspection: normal respiratory effort and able to speak in complete sentences Auscultation: clear to auscultation bilaterally Cardio: Rate: regular rate Rhythm: regular rhythm GI: Inspection: normal to inspection GI Palp: No No hepatosplenomegaly present Auscultation: normal bowel sounds Rectal Exam: deferred Skin: General skin exam: normal color Psych: Appearance: grossly normal Mental Status: mental status grossly normal Assessment and Plan Assessment and plan (1) Encounter for screening colonoscopy: Code(s): Z12.11 - Encounter for screening for malignant neoplasm of colon Status: Acute Assessment and Plan: The patient is deemed a good candidate for the procedure. Consent signed. Will proceed.
[2024-09-08 11:34] VITALS: BP 145/95; PULSE 68; RESP 17; O2SAT 100
[2024-09-08 11:44] VITALS: BP 142/92; PULSE 65; RESP 17; O2SAT 100
[2024-09-08 11:54] VITALS: BP 128/89; PULSE 70; RESP 23; O2SAT 100
--- NOTE | 2024-09-08 11:57 | SUR.PHASEII ---
Pt waiting on ride.
== END 2024-09-08 12:42 | disposition home or self-care (01) ==
PROVIDERS: PCP Internal Medicine Infectious Disease; Referring Provider Internal Medicine Infectious Disease; Visit Provider Internal Medicine Gastroenterology
PROC: 0DJD8ZZ Inspection of Lower Intestinal Tract, Via Natural or Artificial Opening Endoscopic (ICD-10-PCS; CPT 45378; principal; 2024-09-08 11:00)
DX: Z12.11 Encounter for screening for malignant neoplasm of colon (principal); E66.01 Morbid (severe) obesity due to excess calories; Z68.43 Body mass index [BMI] 50.0-59.9, adult
CPT/HCPCS: 45378; J2003; J2704; J7120